=== PATIENT | female | born 1965 | race African-American/Black ===

== ENCOUNTER 2017-01-11 23:36 | Emergency (ER) | payer BC ==
[~2017-01-11] VITALS: Ht 165.1 cm; Wt 90.0 kg
[~2017-01-11 23:36] MED LIST: ATOR10TA69 PO; BISA-81 PO; CARV25TA47 PO; DOCU-138 PO; FURO-152 PO
[2017-01-11 23:40] VITALS: BP 163/91
== END 2017-01-12 00:56 | disposition left against medical advice (07) ==
LOC: ER 23:36
DX: R55 Syncope and collapse (principal); Z53.21 Procedure and treatment not carried out due to patient leaving prior to being seen by health care provider

== ENCOUNTER 2017-04-09 10:49 | Emergency (ER) | payer BC ==
[~2017-04-09] VITALS: Ht 167.6 cm; Wt 80.0 kg
[2017-04-09] MEDS ORDERED: SODIUM CHLORIDE 0.9% 1,000 ML IV ONE (11:02)
[2017-04-09] MEDS ORDERED: ONDANSETRON HCL 4MG/2ML VIAL IV ONE (11:15)
[2017-04-09] MEDS ORDERED: MECLIZINE 25MG TABLET PO ONE (11:15)
[2017-04-09] MEDS ORDERED: LORAZEPAM 1MG TABLET PO ONE (11:15)
[2017-04-09 11:37] LABS: BASOPHILS % 0.4 % (0.0-2.0); EOSINOPHILS % 2.1 % (0.0-5.0); HEMATOCRIT. 32.7 % (36.0-48.0); HEMOGLOBIN. 11.3 g/dL (12.0-16.0); LYMPHOCYTES % 13.3 % (20.0-50.0); MEAN CORPUSCULAR HEMOGLOBIN 32.1 pg (28.0-32.0); MEAN PLATELET VOLUME 9.9 fl (7.4-10.4); MONOCYTES % 7.1 % (2.0-8.0); NEUTROPHILS % 77.1 % (40.0-76.0); PLATELET 179 x1000/uL (130-400); RED BLOOD CELL COUNT 3.52 mill/uL (4.2-5.4); RED CELL DISTRIBUTION WIDTH 14.1 % (11.6-14.6)
[2017-04-09 11:45] LABS: INR 1.1; PROTHROMBIN TIME 11.5 sec (9.4-11.6)
[2017-04-09 11:57] LABS: CARBON DIOXIDE 24 mEq/L (21-32); CHLORIDE 109 mEq/L (98-107); TROPONIN I 0.04 ng/mL (0.00-0.04)
[2017-04-09 15:03] LABS: CLARITY URINE CLEAR (CLEAR); COLOR URINE YELLOW (YELLOW); GLUCOSE URINE NEGATIVE (NEGATIVE); KETONES URINE NEGATIVE (NEGATIVE); LEUKOCYTE ESTERASE URINE NEGATIVE (NEGATIVE); NITRITE URINE NEGATIVE (NEGATIVE); OCCULT BLOOD URINE NEGATIVE (NEGATIVE); PROTEIN URINE 3+ (NEGATIVE); SPECIFIC GRAVITY URINE 1.014 (1.005-1.030); UROBILINOGEN URINE 0.2 E.U./dL (0.2-1.0)
[2017-04-09 16:08] VITALS: BP 121/72
== END 2017-04-09 17:28 | disposition home or self-care (01) ==
LOC: ER 10:58
DX: R42 Dizziness and giddiness (principal); M79.641 Pain in right hand; I48.91 Unspecified atrial fibrillation; I11.0 Hypertensive heart disease with heart failure; I50.9 Heart failure, unspecified; J45.909 Unspecified asthma, uncomplicated; Z95.0 Presence of cardiac pacemaker; Z79.899 Other long term (current) drug therapy; Z88.0 Allergy status to penicillin
CPT/HCPCS: 36415; 70450; 71010; 73130; 80053; 81001; 83880; 84484; 85025; 85610; 93005; 96361; 96374; 99285; J2405; J7030; J7040; Z7610; J8597

== ENCOUNTER 2017-07-18 15:34 | Inpatient (IN) | payer BC, MEDICAID ==
[~2017-07-18] VITALS: Ht 165.1 cm; Wt 102.5 kg
[2017-07-18] MEDS ORDERED: MORPHINE SULFATE 2 MG/ML CPJ (NOT FOR IM USE) IV ONE ×2 (17:45→23:30)
[2017-07-18] MEDS ORDERED: MORPHINE SULFATE 4 MG/ML CPJ (NOT FOR IM USE) IV ONE (18:15)
[2017-07-18 18:29] LABS: BASOPHILS % 0.6 % (0.0-2.0); EOSINOPHILS % 1.6 % (0.0-5.0); HEMOGLOBIN. 9.8 g/dL (12.0-16.0); LYMPHOCYTES % 16.9 % (20.0-50.0); MEAN CORPUSCULAR HEMOGLOBIN 31.9 pg (28.0-32.0); MEAN CORPUSCULAR VOLUME 91.2 fL (81.0-99.0); MEAN PLATELET VOLUME 9.7 fl (7.4-10.4); MONOCYTES % 8.4 % (2.0-8.0); NEUTROPHILS % 72.5 % (40.0-76.0); PLATELET 177 x1000/uL (130-400); RED BLOOD CELL COUNT 3.07 mill/uL (4.2-5.4); RED CELL DISTRIBUTION WIDTH 15.1 % (11.6-14.6)
[2017-07-18 18:35] LABS: CHLORIDE 110 mEq/L (98-107)
[2017-07-18 18:36] LABS: INR 1.2; PROTHROMBIN TIME 12.1 sec (9.4-11.6)
[2017-07-18 18:46] LABS: TROPONIN I 0.05 ng/mL (0.00-0.04)
[2017-07-18] MEDS ORDERED: IPRATROPIUM/ALBUTEROL 0.5-3(2.5)MG/3ML NEB INH PRN (23:45)
[2017-07-18] MEDS ORDERED: CLONIDINE 0.1MG TABLET PO PRN (23:45)
[2017-07-18] MEDS ORDERED: ONDANSETRON HCL 4MG/2ML VIAL IV PRN (23:45)
[2017-07-18] MEDS ORDERED: MORPHINE SULFATE 4 MG/ML CPJ (NOT FOR IM USE) IV NR (23:45)
[2017-07-18] MEDS ORDERED: DOCUSATE SODIUM 100MG CAPSULE PO PRN (23:45)
[2017-07-19] MEDS ORDERED: APIX5TAB PO (02:52)
[2017-07-19] MEDS ORDERED: AMIO100T4 PO (02:52)
[2017-07-19] MEDS ORDERED: HYDR100T26 PO (02:52)
[2017-07-19] MEDS ORDERED: ISOS30TA6 PO (02:52)
[2017-07-19 02:53] VITALS: BP 177/96
[2017-07-19 05:51] LABS: BASOPHILS % 0.3 % (0.0-2.0); EOSINOPHILS % 1.6 % (0.0-5.0); HEMATOCRIT. 27.3 % (36.0-48.0); HEMOGLOBIN. 9.5 g/dL (12.0-16.0); LYMPHOCYTES % 20.4 % (20.0-50.0); MEAN CORPUSCULAR HEMOGLOBIN 31.9 pg (28.0-32.0); MEAN CORPUSCULAR VOLUME 91.6 fL (81.0-99.0); MEAN PLATELET VOLUME 10.1 fl (7.4-10.4); MONOCYTES % 10.2 % (2.0-8.0); NEUTROPHILS % 67.5 % (40.0-76.0); PLATELET 162 x1000/uL (130-400); RED BLOOD CELL COUNT 2.99 mill/uL (4.2-5.4); RED CELL DISTRIBUTION WIDTH 14.6 % (11.6-14.6)
[2017-07-19 06:32] LABS: CREATINE KINASE MB FRACTION 1.3 ng/mL (0.5-3.6); TROPONIN I 0.05 ng/mL (0.00-0.04)
[2017-07-19 06:54] LABS: CLARITY URINE CLEAR (CLEAR); COLOR URINE YELLOW (YELLOW); KETONES URINE NEGATIVE (NEGATIVE); LEUKOCYTE ESTERASE URINE NEGATIVE (NEGATIVE); NITRITE URINE NEGATIVE (NEGATIVE); OCCULT BLOOD URINE TRACE (NEGATIVE); PH URINE 5.5 (4.5-8.0); PROTEIN URINE 4+ (NEGATIVE); SPECIFIC GRAVITY URINE 1.017 (1.005-1.030); UROBILINOGEN URINE 0.2 E.U./dL (0.2-1.0)
[2017-07-19 08:22] LABS: *AMPHETAMINES SCREEN URINE NEGATIVE (NEGATIVE); *BARBITURATES SCREEN URINE NEGATIVE (NEGATIVE); *BENZODIAZEPINES SCREEN URINE NEGATIVE (NEGATIVE); *COCAINE SCREEN URINE NEGATIVE (NEGATIVE); CANNABINOID URINE SCREEN NEGATIVE (NEGATIVE); METHADONE URINE SCREEN NEGATIVE (NEGATIVE); OPIATES URINE SCREEN PRESUMTIVE POSITIVE (NEGATIVE); PHENCYCLIDINE URINE SCREEN NEGATIVE (NEGATIVE)
[2017-07-19 08:25] VITALS: BP 176/90
[2017-07-19] MEDS ORDERED: FUROSEMIDE 40MG/4ML VIAL IV SCH (09:00)
[2017-07-19] MEDS: ISOSORBIDE MONONITRATE 30MG TABLET SR 24HR PO SCH (10:38)
[2017-07-19] MEDS: BISACODYL 5MG TABLET PO SCH (11:00)
[2017-07-19] MEDS: AMIODARONE HCL 200 MG TABLET PO SCH (11:00)
[2017-07-19 12:16] VITALS: BP 184/94
[2017-07-19] MEDS: HYDROCODONE/ACETAMINOPHEN 5/325MG TABLET PO PRN ×2 (12:19→21:15)
[2017-07-19] MEDS ORDERED: CLONIDINE 0.1MG TABLET PO PRN (13:15)
[2017-07-19 16:14] VITALS: BP 150/85
[2017-07-19 16:18] LABS: CREATINE KINASE MB FRACTION 1.2 ng/mL (0.5-3.6); TROPONIN I 0.04 ng/mL (0.00-0.04)
[2017-07-19] MEDS: FUROSEMIDE 40MG/4ML VIAL IV SCH (17:20)
[2017-07-19] MEDS: APIXABAN 5 MG TABLET PO SCH (17:21)
[2017-07-19] MEDS: HYDRALAZINE HCL 100MG TABLET PO SCH (17:21)
[2017-07-19 20:00] VITALS: BP 159/61
[2017-07-19] MEDS: ATORVASTATIN CALCIUM 10MG TABLET PO SCH (21:05)
[2017-07-19] MEDS: CARVEDILOL 25MG TABLET PO SCH (21:05)
[2017-07-20] VITALS: BP 132/68
[2017-07-20 04:00] VITALS: BP 128/85
[2017-07-20] MEDS: HYDROCODONE/ACETAMINOPHEN 5/325MG TABLET PO PRN ×2 (04:57→14:17)
[2017-07-20 06:37] LABS: BASOPHILS % 0.4 % (0.0-2.0); EOSINOPHILS % 1.6 % (0.0-5.0); HEMATOCRIT. 30.5 % (36.0-48.0); HEMOGLOBIN. 10.6 g/dL (12.0-16.0); LYMPHOCYTES % 10.1 % (20.0-50.0); MEAN CORPUSCULAR HEMOGLOBIN 31.3 pg (28.0-32.0); MEAN CORPUSCULAR VOLUME 90.4 fL (81.0-99.0); MEAN PLATELET VOLUME 9.5 fl (7.4-10.4); MONOCYTES % 7.6 % (2.0-8.0); NEUTROPHILS % 80.3 % (40.0-76.0); PLATELET 187 x1000/uL (130-400); RED BLOOD CELL COUNT 3.37 mill/uL (4.2-5.4); RED CELL DISTRIBUTION WIDTH 14.7 % (11.6-14.6)
[2017-07-20] MEDS: FUROSEMIDE 40MG/4ML VIAL IV SCH ×2 (06:39→17:43)
[2017-07-20 07:03] LABS: PHOSPHORUS 3.4 mg/dL (2.5-4.9)
[2017-07-20 07:58] VITALS: BP 136/77
[2017-07-20] MEDS: BISACODYL 5MG TABLET PO SCH ×2 (09:00→09:13)
[2017-07-20] MEDS: ISOSORBIDE MONONITRATE 30MG TABLET SR 24HR PO SCH (09:12)
[2017-07-20] MEDS: HYDRALAZINE HCL 100MG TABLET PO SCH ×2 (09:13→17:45)
[2017-07-20] MEDS: AMIODARONE HCL 200 MG TABLET PO SCH (09:13)
[2017-07-20] MEDS: CARVEDILOL 25MG TABLET PO SCH ×2 (09:13→21:03)
[2017-07-20] MEDS: APIXABAN 5 MG TABLET PO SCH (09:13)
[2017-07-20] MEDS ORDERED: MAGNESIUM 2 G PREMIX 50 ML IV NR (09:30)
[2017-07-20 12:05] VITALS: BP 135/64
[2017-07-20 16:20] VITALS: BP 143/77
[2017-07-20] MEDS: ACETAMINOPHEN 325MG TABLET PO PRN (17:32)
[2017-07-20] MEDS: APIXABAN 2.5 MG TABLET PO SCH (17:43)
[2017-07-20 20:00] VITALS: BP 139/75
[2017-07-20] MEDS: ATORVASTATIN CALCIUM 10MG TABLET PO SCH (21:03)
[2017-07-21] VITALS: BP 134/78
[2017-07-21] MEDS: HYDROCODONE/ACETAMINOPHEN 5/325MG TABLET PO PRN ×2 (00:32→09:54)
[2017-07-21 04:00] VITALS: BP 140/88
[2017-07-21] MEDS: FUROSEMIDE 40MG/4ML VIAL IV SCH (06:40)
[2017-07-21 07:11] LABS: BASOPHILS % 0.3 % (0.0-2.0); EOSINOPHILS % 1.5 % (0.0-5.0); HEMATOCRIT. 30.4 % (36.0-48.0); HEMOGLOBIN. 10.4 g/dL (12.0-16.0); LYMPHOCYTES % 16.3 % (20.0-50.0); MEAN CORPUSCULAR HEMOGLOBIN 31.1 pg (28.0-32.0); MEAN CORPUSCULAR VOLUME 90.5 fL (81.0-99.0); MEAN PLATELET VOLUME 9.7 fl (7.4-10.4); MONOCYTES % 9.2 % (2.0-8.0); NEUTROPHILS % 72.7 % (40.0-76.0); PLATELET 197 x1000/uL (130-400); RED BLOOD CELL COUNT 3.35 mill/uL (4.2-5.4); RED CELL DISTRIBUTION WIDTH 14.6 % (11.6-14.6)
[2017-07-21 07:25] LABS: PHOSPHORUS 3.7 mg/dL (2.5-4.9)
[2017-07-21 08:00] VITALS: BP 149/83
[2017-07-21] MEDS: BISACODYL 5MG TABLET PO SCH (08:44)
[2017-07-21] MEDS: CARVEDILOL 25MG TABLET PO SCH ×2 (08:46→21:06)
[2017-07-21] MEDS: APIXABAN 2.5 MG TABLET PO SCH ×2 (08:47→16:36)
[2017-07-21] MEDS: ISOSORBIDE MONONITRATE 30MG TABLET SR 24HR PO SCH (08:47)
[2017-07-21] MEDS: HYDRALAZINE HCL 100MG TABLET PO SCH ×2 (08:47→16:36)
[2017-07-21] MEDS: AMIODARONE HCL 200 MG TABLET PO SCH (08:47)
[2017-07-21] MEDS ORDERED: SIMETHICONE 80MG TABLET CHEW PO PRN (11:00)
[2017-07-21 12:00] VITALS: BP 112/59
[2017-07-21 16:00] VITALS: BP 120/61
[2017-07-21] MEDS: HYDROCODONE/ACETAMINOPHEN 10/325MG TABLET PO PRN (18:58)
[2017-07-21 20:00] VITALS: BP 129/71
[2017-07-21] MEDS: ATORVASTATIN CALCIUM 10MG TABLET PO SCH (21:05)
[2017-07-22] VITALS: BP 141/72
[2017-07-22] MEDS: HYDROCODONE/ACETAMINOPHEN 10/325MG TABLET PO PRN ×3 (00:24→23:54)
[2017-07-22 04:00] VITALS: BP 128/72
[2017-07-22 08:00] VITALS: BP 145/85
[2017-07-22 08:01] LABS: BASOPHILS % 0.4 % (0.0-2.0); EOSINOPHILS % 1.4 % (0.0-5.0); HEMATOCRIT. 28.5 % (36.0-48.0); HEMOGLOBIN. 9.9 g/dL (12.0-16.0); LYMPHOCYTES % 16.2 % (20.0-50.0); MEAN CORPUSCULAR HEMOGLOBIN 30.9 pg (28.0-32.0); MEAN CORPUSCULAR VOLUME 89.3 fL (81.0-99.0); MEAN PLATELET VOLUME 9.9 fl (7.4-10.4); MONOCYTES % 8.4 % (2.0-8.0); NEUTROPHILS % 73.6 % (40.0-76.0); PLATELET 191 x1000/uL (130-400); RED BLOOD CELL COUNT 3.18 mill/uL (4.2-5.4); RED CELL DISTRIBUTION WIDTH 14.5 % (11.6-14.6)
[2017-07-22 08:49] LABS: PHOSPHORUS 3.8 mg/dL (2.5-4.9)
[2017-07-22] MEDS: AMIODARONE HCL 200 MG TABLET PO SCH (08:50)
[2017-07-22] MEDS: FUROSEMIDE 40MG TABLET PO SCH ×2 (08:50→20:54)
[2017-07-22] MEDS: APIXABAN 2.5 MG TABLET PO SCH ×2 (08:51→17:28)
[2017-07-22] MEDS: ISOSORBIDE MONONITRATE 30MG TABLET SR 24HR PO SCH (08:51)
[2017-07-22] MEDS: HYDRALAZINE HCL 100MG TABLET PO SCH ×2 (08:51→17:28)
[2017-07-22] MEDS: BISACODYL 5MG TABLET PO SCH (08:52)
[2017-07-22] MEDS: CARVEDILOL 25MG TABLET PO SCH ×2 (08:52→20:54)
[2017-07-22 12:00] VITALS: BP 102/58
[2017-07-22] MEDS ORDERED: POTASSIUM CHLORIDE 20MEQ TABLET SR PO NR (14:45)
[2017-07-22 16:00] VITALS: BP 122/66
[2017-07-22] MEDS: HYDROCODONE/ACETAMINOPHEN 5/325MG TABLET PO PRN (18:54)
[2017-07-22 20:00] VITALS: BP 128/67
[2017-07-22] MEDS: ATORVASTATIN CALCIUM 10MG TABLET PO SCH (20:53)
[2017-07-23] VITALS: BP 134/68
[2017-07-23 04:00] VITALS: BP 136/57
[2017-07-23 07:29] LABS: BASOPHILS % 0.5 % (0.0-2.0); EOSINOPHILS % 1.9 % (0.0-5.0); HEMATOCRIT. 28.6 % (36.0-48.0); HEMOGLOBIN. 9.8 g/dL (12.0-16.0); LYMPHOCYTES % 17.4 % (20.0-50.0); MEAN CORPUSCULAR HEMOGLOBIN 30.7 pg (28.0-32.0); MEAN CORPUSCULAR VOLUME 89.6 fL (81.0-99.0); MEAN PLATELET VOLUME 9.8 fl (7.4-10.4); MONOCYTES % 10.2 % (2.0-8.0); PLATELET 220 x1000/uL (130-400); RED BLOOD CELL COUNT 3.19 mill/uL (4.2-5.4); RED CELL DISTRIBUTION WIDTH 14.7 % (11.6-14.6)
[2017-07-23 08:00] VITALS: BP 142/81
[2017-07-23] MEDS: BISACODYL 5MG TABLET PO SCH (09:00)
[2017-07-23] MEDS: ISOSORBIDE MONONITRATE 30MG TABLET SR 24HR PO SCH (09:06)
[2017-07-23] MEDS: ACETAMINOPHEN 325MG TABLET PO PRN (09:07)
[2017-07-23] MEDS: CARVEDILOL 25MG TABLET PO SCH (09:07)
[2017-07-23] MEDS: FUROSEMIDE 40MG TABLET PO SCH (09:07)
[2017-07-23] MEDS: AMIODARONE HCL 200 MG TABLET PO SCH (09:07)
[2017-07-23] MEDS: HYDRALAZINE HCL 100MG TABLET PO SCH ×2 (09:08→18:37)
[2017-07-23] MEDS: APIXABAN 2.5 MG TABLET PO SCH ×2 (09:08→18:36)
[2017-07-23 11:50] VITALS: BP 148/67
[2017-07-23 13:11] LABS: A/G RATIO 1.1 (0.7-1.7); ALBUMIN 3.8 g/dL (2.9-4.4); ALPHA-1-GLOBULIN 0.3 g/dL (0.0-0.4); GAMMA GLOBULINS 1.4 g/dL (0.4-1.8); GLOBULIN TOTAL 3.6 g/dL (2.2-3.9); M-SPIKE Not Observed g/dL (Not Observed); TOTAL PROTEIN SERUM 7.4 g/dL (6.0-8.5)
[2017-07-23] MEDS: HYDROCODONE/ACETAMINOPHEN 10/325MG TABLET PO PRN (15:03)
[2017-07-23 16:00] VITALS: BP 148/58
[2017-07-23 18:14] VITALS: BP 124/72
[2017-07-24 09:07] LABS: COMPLEMENT C3 179 mg/dL (82-167)
[2017-07-25 04:13] LABS: ANTI-NUCLEAR ANTIBODIES DIRECT Positive (Negative)
== END 2017-07-23 19:18 | disposition home or self-care (01) | DRG 194 ==
LOC: ER 15:34 → 6WST 19:21 → ENRESERV 22:44 → 6WST 07-19 04:37
PROVIDERS: ADMIT Internal Medicine; ATTEND Internal Medicine
DX: I13.2 Hypertensive heart and chronic kidney disease with heart failure and with stage 5 chronic kidney disease, or end stage renal disease (principal); N17.9 Acute kidney failure, unspecified; I27.20 Pulmonary hypertension, unspecified; E66.01 Morbid (severe) obesity due to excess calories; N18.5 Chronic kidney disease, stage 5; I42.0 Dilated cardiomyopathy; B35.9 Dermatophytosis, unspecified; I48.0 Paroxysmal atrial fibrillation; I50.23 Acute on chronic systolic (congestive) heart failure; D64.9 Anemia, unspecified; E78.5 Hyperlipidemia, unspecified; I25.10 Atherosclerotic heart disease of native coronary artery without angina pectoris; J45.909 Unspecified asthma, uncomplicated; M72.2 Plantar fascial fibromatosis; M77.31 Calcaneal spur, right foot; Z68.37 Body mass index [BMI] 37.0-37.9, adult; Z79.01 Long term (current) use of anticoagulants; Z95.0 Presence of cardiac pacemaker; Z88.0 Allergy status to penicillin; Z79.899 Other long term (current) drug therapy
CPT/HCPCS: 36415; 71045; 73630; 76770; 80048; 80053; 80061; 80305; 81003; 81025; 82550; 82553; 83735; 83880; 84100; 84155; 84165; 84443; 84484; 84550; 85025; 85610; 86038; 86160; 93005; 93970; 96374; 96375; 97116; 97162; 99285; J1940; J2270; J3475; J7040

== ENCOUNTER 2018-01-23 23:10 | Inpatient (IN) | payer MEDICAID ==
[~2018-01-23] VITALS: Ht 165.1 cm; Wt 106.6 kg
[~2018-01-23 23:10] MED LIST changes: +AMIO100T4 PO; +APIX5TAB PO; +FOLI-43 MT; +HYDR100T26 PO; +ISOS30TA6 PO; +NEPVIT MT
[2018-01-24] MEDS ORDERED: ALBUTEROL (0.083%) 2.5MG/3ML NEB HHN STA (00:49)
[2018-01-24] MEDS ORDERED: IPRATROPIUM BROMIDE (0.02%) 0.5MG/2.5ML NEB HHN STA (00:49)
[2018-01-24] MEDS ORDERED: PREDNISONE 20MG TABLET PO STA (00:49)
[2018-01-24 01:26] LABS: BASOPHILS % 0.6 % (0.0-2.0); EOSINOPHILS % 3.5 % (0.0-5.0); HEMATOCRIT. 30.8 % (36.0-48.0); HEMOGLOBIN. 10.6 g/dL (12.0-16.0); LYMPHOCYTES % 28.1 % (20.0-50.0); MEAN CORPUSCULAR HEMOGLOBIN 31.3 pg (28.0-32.0); MEAN CORPUSCULAR VOLUME 91.1 fL (81.0-99.0); MEAN PLATELET VOLUME 9.6 fl (7.4-10.4); MONOCYTES % 8.2 % (2.0-8.0); NEUTROPHILS % 59.6 % (40.0-76.0); PLATELET 191 x1000/uL (130-400); RED BLOOD CELL COUNT 3.39 mill/uL (4.2-5.4)
[2018-01-24 01:33] LABS: CHLORIDE 109 mEq/L (98-107)
[2018-01-24] MEDS ORDERED: ENALAPRIL 2.5MG/2ML VIAL 2ML IV ONE (02:15)
[2018-01-24] MEDS ORDERED: FUROSEMIDE 40MG/4ML VIAL IVP ONE (02:15)
[2018-01-24] MEDS ORDERED: MORPHINE SULFATE 4 MG/ML CPJ (NOT FOR IM USE) IV PRN (04:30)
[2018-01-24] MEDS ORDERED: CLONIDINE 0.1MG TABLET PO PRN (04:30)
[2018-01-24] MEDS ORDERED: MAGNESIUM/ALUMINUM HYDROXIDE/SIMETHICONE 30ML UDC PO PRN (04:30)
[2018-01-24] MEDS ORDERED: DOCUSATE SODIUM 100MG CAPSULE PO PRN (04:30)
[2018-01-24] MEDS ORDERED: ONDANSETRON 4MG ODT PO PRN (04:30)
[2018-01-24] MEDS ORDERED: HYDROCODONE/ACETAMINOPHEN 5/325MG TABLET PO PRN (04:30)
[2018-01-24] MEDS ORDERED: ACETAMINOPHEN 325MG TABLET PO PRN (04:30)
[2018-01-24] MEDS ORDERED: IPRATROPIUM/ALBUTEROL 0.5-3(2.5)MG/3ML NEB INH PRN (04:30)
[2018-01-24 05:00] VITALS: BP 196/98
[2018-01-24] MEDS ORDERED: NEPVIT MT (05:40)
[2018-01-24] MEDS ORDERED: DOCU250C69 MT (05:40)
[2018-01-24] MEDS ORDERED: POTA-9 MT (05:40)
[2018-01-24 07:54] VITALS: BP 168/79
[2018-01-24] MEDS ORDERED: ENOXAPARIN 40MG/0.4ML SYR SUBCUT SCH (09:00)
[2018-01-24 09:37] LABS: CREATINE KINASE MB FRACTION 3.7 ng/mL (0.5-3.6)
[2018-01-24] MEDS: FUROSEMIDE 40MG/4ML VIAL IV SCH (09:42)
[2018-01-24] MEDS: ASPIRIN 81MG EC TABLET PO SCH (09:42)
[2018-01-24] MEDS: AMLODIPINE 10MG TABLET PO SCH (09:43)
[2018-01-24 12:00] VITALS: BP 161/85
[2018-01-24] MEDS ORDERED: GUAIFENESIN 200MG/10ML SUGAR FREE UDC PO PRN (12:30)
[2018-01-24] MEDS: CARVEDILOL 25MG TABLET PO SCH (13:45)
[2018-01-24] MEDS: HYDRALAZINE HCL 100MG TABLET PO SCH (13:45)
[2018-01-24] MEDS: GUAIFENESIN 200MG/10ML SUGAR FREE UDC PO PRN ×2 (13:46→20:36)
[2018-01-24 15:34] LABS: CLARITY URINE CLEAR (CLEAR); COLOR URINE YELLOW (YELLOW); KETONES URINE NEGATIVE (NEGATIVE); LEUKOCYTE ESTERASE URINE NEGATIVE (NEGATIVE); NITRITE URINE NEGATIVE (NEGATIVE); OCCULT BLOOD URINE TRACE (NEGATIVE); PROTEIN URINE 3+ (NEGATIVE); SPECIFIC GRAVITY URINE 1.008 (1.005-1.030); UROBILINOGEN URINE 0.2 E.U./dL (0.2-1.0)
[2018-01-24 16:04] VITALS: BP 140/65
[2018-01-24] MEDS: LEVOFLOXACIN 250MG PREMIX 50 ML IV SCH (16:23)
[2018-01-24 17:30] LABS: CREATINE KINASE MB FRACTION 2.9 ng/mL (0.5-3.6)
[2018-01-24 20:00] VITALS: BP 154/91
[2018-01-24] MEDS: ATORVASTATIN CALCIUM 20MG TABLET PO SCH (20:36)
[2018-01-25] VITALS: BP 146/79
[2018-01-25 02:01] VITALS: BP 165/98
[2018-01-25] MEDS: CARVEDILOL 25MG TABLET PO SCH ×3 (02:02→20:15)
[2018-01-25] MEDS: HYDRALAZINE HCL 100MG TABLET PO SCH ×3 (02:02→20:15)
[2018-01-25 06:15] LABS: BASOPHILS % 0.3 % (0.0-2.0); EOSINOPHILS % 0.5 % (0.0-5.0); HEMATOCRIT. 29.9 % (36.0-48.0); HEMOGLOBIN. 10.5 g/dL (12.0-16.0); LYMPHOCYTES % 16.8 % (20.0-50.0); MEAN CORPUSCULAR HEMOGLOBIN 31.6 pg (28.0-32.0); MEAN CORPUSCULAR VOLUME 90.1 fL (81.0-99.0); MEAN PLATELET VOLUME 9.7 fl (7.4-10.4); MONOCYTES % 8.4 % (2.0-8.0); PLATELET 176 x1000/uL (130-400); RED BLOOD CELL COUNT 3.32 mill/uL (4.2-5.4); RED CELL DISTRIBUTION WIDTH 15.7 % (11.6-14.6)
[2018-01-25 08:00] VITALS: BP 143/95
[2018-01-25 08:18] LABS: CHLORIDE 108 mEq/L (98-107)
[2018-01-25 08:32] LABS: HDL CHOLESTEROL 50 mg/dL (40-59); LDL CHOLESTEROL 119 mg/dL (5-100)
[2018-01-25] MEDS: AMLODIPINE 10MG TABLET PO SCH (09:35)
[2018-01-25] MEDS: FUROSEMIDE 40MG/4ML VIAL IV SCH (09:35)
[2018-01-25] MEDS: APIXABAN 5 MG TABLET PO SCH ×2 (09:35→18:21)
[2018-01-25] MEDS: ASPIRIN 81MG EC TABLET PO SCH (09:35)
[2018-01-25 12:00] VITALS: BP 129/83
[2018-01-25 16:00] VITALS: BP 126/81
[2018-01-25 20:00] VITALS: BP 142/89
[2018-01-25] MEDS: ATORVASTATIN CALCIUM 20MG TABLET PO SCH (20:15)
[2018-01-26] VITALS: BP 140/92
[2018-01-26 04:00] VITALS: BP 148/86
[2018-01-26 08:00] VITALS: BP 140/94
[2018-01-26 08:05] LABS: BASOPHILS % 0.6 % (0.0-2.0); HEMATOCRIT. 32.9 % (36.0-48.0); HEMOGLOBIN. 11.3 g/dL (12.0-16.0); LYMPHOCYTES % 28.4 % (20.0-50.0); MEAN CORPUSCULAR VOLUME 89.9 fL (81.0-99.0); MEAN PLATELET VOLUME 9.2 fl (7.4-10.4); MONOCYTES % 9.1 % (2.0-8.0); NEUTROPHILS % 55.9 % (40.0-76.0); PLATELET 197 x1000/uL (130-400); RED BLOOD CELL COUNT 3.66 mill/uL (4.2-5.4); RED CELL DISTRIBUTION WIDTH 15.9 % (11.6-14.6)
[2018-01-26] MEDS: FUROSEMIDE 40MG/4ML VIAL IV SCH (08:49)
[2018-01-26] MEDS: AMLODIPINE 10MG TABLET PO SCH (08:50)
[2018-01-26] MEDS: ASPIRIN 81MG EC TABLET PO SCH (08:50)
[2018-01-26] MEDS: APIXABAN 5 MG TABLET PO SCH ×2 (08:50→17:13)
[2018-01-26] MEDS: HYDRALAZINE HCL 100MG TABLET PO SCH (08:50)
[2018-01-26] MEDS: CARVEDILOL 25MG TABLET PO SCH (08:54)
[2018-01-26] MEDS ORDERED: LACTULOSE 20G/30ML UDC PO PRN (11:30)
[2018-01-26 12:00] VITALS: BP 129/82
[2018-01-26] MEDS: LEVOFLOXACIN 250MG PREMIX 50 ML IV SCH (14:43)
[2018-01-26 16:00] VITALS: BP 127/85
[2018-01-26 16:23] VITALS: BP 123/85
== END 2018-01-26 17:35 | disposition home or self-care (01) | DRG 199 ==
LOC: ER 23:10 → 5WST 01-24 02:46 → ENRESERV 01-24 03:54 → SUPCPDRO 01-24 04:20
PROVIDERS: ADMIT Hospitalist; ATTEND Hospitalist
DX: I16.0 Hypertensive urgency (principal); I50.33 Acute on chronic diastolic (congestive) heart failure; N17.9 Acute kidney failure, unspecified; N18.4 Chronic kidney disease, stage 4 (severe); J45.901 Unspecified asthma with (acute) exacerbation; I13.0 Hypertensive heart and chronic kidney disease with heart failure and stage 1 through stage 4 chronic kidney disease, or unspecified chronic kidney disease; D64.9 Anemia, unspecified; E78.5 Hyperlipidemia, unspecified; I25.10 Atherosclerotic heart disease of native coronary artery without angina pectoris; R79.89 Other specified abnormal findings of blood chemistry; Z95.810 Presence of automatic (implantable) cardiac defibrillator; Z79.899 Other long term (current) drug therapy; Z88.0 Allergy status to penicillin
CPT/HCPCS: 36415; 71045; 76770; 80048; 80053; 80061; 81003; 81025; 82550; 82553; 82570; 82575; 83880; 84156; 84484; 85025; 93005; 93306; 93970; 94640; 94644; 96374; 96375; 99285; J1650; J1940; J1956; J3490; J7040; J7512; J7611

== ENCOUNTER 2018-05-05 11:17 | Emergency (ER) | payer MEDICAID ==
[~2018-05-05] VITALS: Ht 165.1 cm; Wt 103.0 kg
[~2018-05-05 11:17] MED LIST changes: -AMIO100T4 PO; +AMLO5TAB88 PO; -BISA-81 PO; -CARV25TA47 PO; +COR6 PO; -DOCU-138 PO; +DOCU250C69 MT; -FOLI-43 MT; -FURO-152 PO; +HYDR-4134 PO; -HYDR100T26 PO; +TUSSL PO
[2018-05-05 12:55] LABS: BASOPHILS % 1.1 % (0.0-2.0); EOSINOPHILS % 5.3 % (0.0-5.0); HEMATOCRIT. 30.2 % (36.0-48.0); HEMOGLOBIN. 10.3 g/dL (12.0-16.0); LYMPHOCYTES % 21.5 % (20.0-50.0); MEAN CORPUSCULAR HEMOGLOBIN 31.5 pg (28.0-32.0); MEAN CORPUSCULAR VOLUME 91.9 fL (81.0-99.0); MEAN PLATELET VOLUME 9.9 fl (7.4-10.4); MONOCYTES % 7.3 % (2.0-8.0); NEUTROPHILS % 64.8 % (40.0-76.0); PLATELET 229 x1000/uL (130-400); RED BLOOD CELL COUNT 3.29 mill/uL (4.2-5.4); RED CELL DISTRIBUTION WIDTH 14.5 % (11.6-14.6)
[2018-05-05 13:02] LABS: CHLORIDE 101 mEq/L (98-107)
[2018-05-05 14:50] VITALS: BP 134/67
== END 2018-05-05 14:00 | disposition home or self-care (01) ==
LOC: ER 11:17
DX: I13.2 Hypertensive heart and chronic kidney disease with heart failure and with stage 5 chronic kidney disease, or end stage renal disease (principal); N18.6 End stage renal disease; R25.2 Cramp and spasm; I48.91 Unspecified atrial fibrillation; J45.909 Unspecified asthma, uncomplicated; I50.9 Heart failure, unspecified; Z79.899 Other long term (current) drug therapy; Z88.0 Allergy status to penicillin; Z99.2 Dependence on renal dialysis
CPT/HCPCS: 36415; 71045; 99284

== ENCOUNTER 2018-06-21 16:31 | Emergency (ER) | payer MEDICAID ==
[~2018-06-21] VITALS: Ht 162.6 cm; Wt 110.0 kg
[2018-06-21] MEDS ORDERED: ONDANSETRON HCL 4MG/2ML INJ IV STA (16:59)
[2018-06-21] MEDS ORDERED: MORPHINE SULFATE 4 MG/ML CPJ (NOT FOR IM USE) IV STA (16:59)
[2018-06-21] MEDS ORDERED: LORAZEPAM 2MG/ML CPJ IV ONE (17:00)
[2018-06-21 17:49] LABS: BASOPHILS % 0.6 % (0.0-2.0); EOSINOPHILS % 4.6 % (0.0-5.0); HEMATOCRIT. 30.3 % (36.0-48.0); HEMOGLOBIN. 10.4 g/dL (12.0-16.0); LYMPHOCYTES % 21.2 % (20.0-50.0); MEAN CORPUSCULAR HEMOGLOBIN 32.6 pg (28.0-32.0); MEAN CORPUSCULAR VOLUME 95.4 fL (81.0-99.0); MEAN PLATELET VOLUME 10.1 fl (7.4-10.4); MONOCYTES % 8.6 % (2.0-8.0); PLATELET 184 x1000/uL (130-400); RED BLOOD CELL COUNT 3.18 mill/uL (4.2-5.4); RED CELL DISTRIBUTION WIDTH 16.3 % (11.6-14.6)
[2018-06-21 17:54] LABS: CHLORIDE 98 mEq/L (98-107)
[2018-06-21 17:55] LABS: INR 1.1; PARTIAL THROMBOPLASTIN TIME 26.5 sec (23.4-31.0); PROTHROMBIN TIME 10.9 sec (9.1-11.1)
[2018-06-21] MEDS ORDERED: SODIUM CHLORIDE 0.9% 250 ML IV ONE (18:03)
[2018-06-21 20:09] VITALS: BP 98/53
== END 2018-06-21 20:12 | disposition home or self-care (01) ==
LOC: ER 16:31
DX: I13.2 Hypertensive heart and chronic kidney disease with heart failure and with stage 5 chronic kidney disease, or end stage renal disease (principal); M54.9 Dorsalgia, unspecified; R10.13 Epigastric pain; I48.91 Unspecified atrial fibrillation; J45.909 Unspecified asthma, uncomplicated; I50.9 Heart failure, unspecified; N18.6 End stage renal disease; Z99.2 Dependence on renal dialysis; Z98.890 Other specified postprocedural states; Z79.899 Other long term (current) drug therapy; Z88.0 Allergy status to penicillin
CPT/HCPCS: 36415; 71045; 74176; 80053; 83690; 83880; 84484; 85025; 85610; 85730; 93005; 96374; 96375; 99284; J2060; J2270; J2405; J7050; Z7610

== ENCOUNTER 2018-07-31 15:59 | Inpatient (IN) | payer MEDICAID ==
[~2018-07-31] VITALS: Ht 165.1 cm; Wt 102.5 kg
[~2018-07-31 15:59] MED LIST changes: +CARVEDILOL 12.5MG TABLET PO SCH
[2018-07-31 19:06] LABS: CHLORIDE 102 mEq/L (98-107)
[2018-07-31 19:07] LABS: BASOPHILS % 0.7 % (0.0-2.0); EOSINOPHILS % 3.4 % (0.0-5.0); HEMATOCRIT. 33.4 % (36.0-48.0); HEMOGLOBIN. 11.7 g/dL (12.0-16.0); LYMPHOCYTES % 21.5 % (20.0-50.0); MEAN CORPUSCULAR HEMOGLOBIN 33.7 pg (28.0-32.0); MEAN CORPUSCULAR VOLUME 96.2 fL (81.0-99.0); MEAN PLATELET VOLUME 9.7 fl (7.4-10.4); MONOCYTES % 7.2 % (2.0-8.0); NEUTROPHILS % 67.2 % (40.0-76.0); PLATELET 149 x1000/uL (130-400); RED BLOOD CELL COUNT 3.47 mill/uL (4.2-5.4)
[2018-07-31 19:11] LABS: INR 1.1; PROTHROMBIN TIME 10.8 sec (9.1-11.1)
[2018-07-31] MEDS ORDERED: ASPIRIN 81MG TABLET PO ONE (19:30)
[2018-07-31] MEDS ORDERED: FUROSEMIDE 20MG/2ML VIAL IVP ONE (19:30)
[2018-07-31] MEDS ORDERED: ONDANSETRON HCL 4MG/2ML INJ IV PRN (21:00)
[2018-07-31] MEDS ORDERED: ZOLPIDEM TARTRATE 5MG TABLET PO PRN (21:00)
[2018-07-31] MEDS ORDERED: ACETAMINOPHEN 325MG TABLET PO PRN (21:00)
[2018-07-31] MEDS ORDERED: CLONIDINE 0.1MG TABLET PO PRN (21:00)
[2018-08-01 05:45] LABS: EOSINOPHILS % 4.1 % (0.0-5.0); HEMATOCRIT. 32.2 % (36.0-48.0); HEMOGLOBIN. 11.1 g/dL (12.0-16.0); MEAN CORPUSCULAR HEMOGLOBIN 33.2 pg (28.0-32.0); MEAN CORPUSCULAR VOLUME 96.2 fL (81.0-99.0); MEAN PLATELET VOLUME 8.7 fl (7.4-10.4); MONOCYTES % 9.7 % (2.0-8.0); NEUTROPHILS % 55.2 % (40.0-76.0); PLATELET 146 x1000/uL (130-400); RED BLOOD CELL COUNT 3.34 mill/uL (4.2-5.4); RED CELL DISTRIBUTION WIDTH 15.6 % (11.6-14.6)
[2018-08-01 08:10] VITALS: BP 144/87
[2018-08-01] MEDS: LOSARTAN POTASSIUM 50 MG TABLET PO SCH (10:44)
[2018-08-01] MEDS: ASPIRIN 81MG TABLET PO SCH (10:44)
[2018-08-01] MEDS ORDERED: AMIO100T4 PO (11:11)
[2018-08-01 11:52] VITALS: BP 126/90
[2018-08-01 11:53] VITALS: BP 107/57
[2018-08-01] MEDS: AMIODARONE HCL 200 MG TABLET PO SCH (13:56)
[2018-08-01] MEDS: APIXABAN 5 MG TABLET PO SCH (13:56)
[2018-08-01] MEDS: DILTIAZEM HCL 60MG TABLET PO SCH ×2 (13:56→22:19)
[2018-08-01 16:00] VITALS: BP 100/49
[2018-08-01 20:00] VITALS: BP 112/76
[2018-08-01] MEDS: CARVEDILOL 12.5MG TABLET PO SCH (21:00)
[2018-08-02] VITALS: BP 115/81
[2018-08-02 01:43] LABS: *AMPHETAMINES SCREEN URINE NEGATIVE (NEGATIVE); *BARBITURATES SCREEN URINE NEGATIVE (NEGATIVE); *BENZODIAZEPINES SCREEN URINE NEGATIVE (NEGATIVE); *COCAINE SCREEN URINE NEGATIVE (NEGATIVE)
[2018-08-02 01:44] LABS: CANNABINOID URINE SCREEN NEGATIVE (NEGATIVE); METHADONE URINE SCREEN NEGATIVE (NEGATIVE); OPIATES URINE SCREEN NEGATIVE (NEGATIVE); PHENCYCLIDINE URINE SCREEN NEGATIVE (NEGATIVE)
[2018-08-02 04:00] VITALS: BP 149/65
[2018-08-02] MEDS: DILTIAZEM HCL 60MG TABLET PO SCH ×3 (05:34→22:25)
[2018-08-02 07:10] LABS: BASOPHILS % 0.7 % (0.0-2.0); EOSINOPHILS % 4.7 % (0.0-5.0); HEMATOCRIT. 32.8 % (36.0-48.0); HEMOGLOBIN. 11.2 g/dL (12.0-16.0); LYMPHOCYTES % 27.8 % (20.0-50.0); MEAN CORPUSCULAR HEMOGLOBIN 33.3 pg (28.0-32.0); MEAN CORPUSCULAR VOLUME 97.9 fL (81.0-99.0); MEAN PLATELET VOLUME 9.6 fl (7.4-10.4); MONOCYTES % 11.9 % (2.0-8.0); NEUTROPHILS % 54.9 % (40.0-76.0); PLATELET 142 x1000/uL (130-400); RED BLOOD CELL COUNT 3.35 mill/uL (4.2-5.4); RED CELL DISTRIBUTION WIDTH 15.7 % (11.6-14.6)
[2018-08-02 08:00] VITALS: BP 109/76
[2018-08-02] MEDS: CARVEDILOL 12.5MG TABLET PO SCH ×2 (09:00→21:20)
[2018-08-02] MEDS: ASPIRIN 81MG TABLET PO SCH (09:15)
[2018-08-02] MEDS: APIXABAN 5 MG TABLET PO SCH ×2 (09:15→17:03)
[2018-08-02 12:03] VITALS: BP 117/43
[2018-08-02] MEDS: AMIODARONE HCL 200 MG TABLET PO SCH (14:17)
[2018-08-02] MEDS: POLYETHYLENE GLYCOL 3350 (17GM) 1 DOSE PACK PO SCH (14:17)
[2018-08-02 16:00] VITALS: BP 124/72
[2018-08-02] MEDS: LOSARTAN POTASSIUM 50 MG TABLET PO SCH (16:34)
[2018-08-02 20:00] VITALS: BP 116/78
[2018-08-02] MEDS ORDERED: COR25 MT (20:40)
[2018-08-02] MEDS ORDERED: HYDR100T26 MT (20:42)
[2018-08-02] MEDS ORDERED: ISOS30TA6 MT (20:43)
[2018-08-02] MEDS ORDERED: AMLO10TA4 MT (20:46)
[2018-08-02] MEDS ORDERED: ASPI-1159 MT (20:46)
[2018-08-02] MEDS ORDERED: FURO-151 MT (20:46)
[2018-08-02] MEDS ORDERED: ASPI-1160 MT (20:47)
[2018-08-03] VITALS (7 sets, daily range): BP systolic 110–126; BP diastolic 59–73
[2018-08-03] MEDS: DILTIAZEM HCL 60MG TABLET PO SCH ×2 (05:36→14:00)
[2018-08-03 06:37] LABS: BASOPHILS % 0.9 % (0.0-2.0); EOSINOPHILS % 5.5 % (0.0-5.0); HEMATOCRIT. 35.5 % (36.0-48.0); HEMOGLOBIN. 12.3 g/dL (12.0-16.0); LYMPHOCYTES % 29.6 % (20.0-50.0); MEAN CORPUSCULAR HEMOGLOBIN 33.3 pg (28.0-32.0); MEAN CORPUSCULAR VOLUME 95.8 fL (81.0-99.0); MEAN PLATELET VOLUME 9.6 fl (7.4-10.4); MONOCYTES % 12.8 % (2.0-8.0); NEUTROPHILS % 51.2 % (40.0-76.0); PLATELET 151 x1000/uL (130-400); RED CELL DISTRIBUTION WIDTH 15.6 % (11.6-14.6)
[2018-08-03] MEDS: LOSARTAN POTASSIUM 50 MG TABLET PO SCH (08:44)
[2018-08-03] MEDS: AMIODARONE HCL 200 MG TABLET PO SCH (08:44)
[2018-08-03] MEDS: ASPIRIN 81MG TABLET PO SCH (08:44)
[2018-08-03] MEDS: CARVEDILOL 12.5MG TABLET PO SCH ×2 (08:45→20:37)
[2018-08-03] MEDS: APIXABAN 5 MG TABLET PO SCH ×2 (08:45→16:59)
[2018-08-03] MEDS: POLYETHYLENE GLYCOL 3350 (17GM) 1 DOSE PACK PO SCH (08:45)
[2018-08-03] MEDS ORDERED: POLY17PO3 PO (15:04)
[2018-08-03] MEDS ORDERED: LOSA50TA3 PO (15:04)
[2018-08-03] MEDS ORDERED: DILT60TA35 PO (15:04)
== END 2018-08-03 21:00 | disposition home or self-care (01) | DRG 201 ==
LOC: ER 15:59 → EDBEDREQTM 20:00 → EDBEDREQ 20:00 → ENRESERV 08-01 07:34 → 8WST 08-01 08:04
PROVIDERS: ADMIT Internal Medicine; ATTEND Internal Medicine
PROC: 4B02XTZ Measurement of Cardiac Defibrillator, External Approach (ICD-10-PCS; principal; 2018-08-01)
PROC: 5A1D70Z Performance of Urinary Filtration, Intermittent, Less than 6 Hours Per Day (ICD-10-PCS; 2018-08-02)
DX: I47.1 Supraventricular tachycardia (principal); I13.2 Hypertensive heart and chronic kidney disease with heart failure and with stage 5 chronic kidney disease, or end stage renal disease; I27.20 Pulmonary hypertension, unspecified; I42.0 Dilated cardiomyopathy; N18.6 End stage renal disease; D63.1 Anemia in chronic kidney disease; E66.9 Obesity, unspecified; I34.0 Nonrheumatic mitral (valve) insufficiency; I48.0 Paroxysmal atrial fibrillation; I50.23 Acute on chronic systolic (congestive) heart failure; J45.909 Unspecified asthma, uncomplicated; Z79.01 Long term (current) use of anticoagulants; Z82.49 Family history of ischemic heart disease and other diseases of the circulatory system; Z95.810 Presence of automatic (implantable) cardiac defibrillator; Z99.2 Dependence on renal dialysis; Z88.0 Allergy status to penicillin; Z79.899 Other long term (current) drug therapy; Z71.3 Dietary counseling and surveillance
CPT/HCPCS: 36415; 71045; 80048; 80305; 83735; 83880; 84443; 84484; 93005; 93306; 93970; 96374; 96375; 99285; J1940; J2405

== ENCOUNTER 2018-10-07 17:14 | Emergency (ER) | payer MEDICAID ==
[~2018-10-07] VITALS: Ht 165.1 cm; Wt 102.0 kg
[~2018-10-07 17:14] MED LIST changes: +AMIO100T4 PO; -AMLO5TAB88 PO; +ASPI-1160 MT; -CARVEDILOL 12.5MG TABLET PO SCH; +COR25 MT; -COR6 PO; +DILT60TA35 PO; -DOCU250C69 MT; +FURO-151 MT; -HYDR-4134 PO; -ISOS30TA6 PO; +LOSA50TA3 PO; -NEPVIT MT; +POLY17PO3 PO; -TUSSL PO
[2018-10-07] MEDS ORDERED: ONDANSETRON 4MG ODT PO STA (17:59)
[2018-10-07] MEDS ORDERED: MAGNESIUM/ALUMINUM HYDROXIDE/SIMETHICONE 30ML UDC PO STA (17:59)
[2018-10-07 19:13] LABS: HEMATOCRIT. 34.7 % (36.0-48.0); HEMOGLOBIN. 12.3 g/dL (12.0-16.0); MEAN CORPUSCULAR VOLUME 98.6 fL (81.0-99.0); MEAN PLATELET VOLUME 9.6 fl (7.4-10.4); MONOCYTES % 9.5 % (2.0-8.0); NEUTROPHILS % 59.5 % (40.0-76.0); PLATELET 132 x1000/uL (130-400); RED BLOOD CELL COUNT 3.53 mill/uL (4.2-5.4); RED CELL DISTRIBUTION WIDTH 16.8 % (11.6-14.6)
[2018-10-07 19:14] LABS: CHLORIDE 98 mEq/L (98-107)
[2018-10-07 19:15] LABS: PROTHROMBIN TIME 10.8 sec (9.6-11.0)
[2018-10-07] MEDS ORDERED: DIAZEPAM 5 MG TABLET PO ONE (19:45)
[2018-10-07 20:44] VITALS: BP 132/82
== END 2018-10-07 20:45 | disposition home or self-care (01) ==
LOC: ER 17:58
DX: I13.2 Hypertensive heart and chronic kidney disease with heart failure and with stage 5 chronic kidney disease, or end stage renal disease (principal); R25.2 Cramp and spasm; M62.831 Muscle spasm of calf; R14.3 Flatulence; R10.9 Unspecified abdominal pain; N18.6 End stage renal disease; I50.9 Heart failure, unspecified; I48.91 Unspecified atrial fibrillation; Z99.2 Dependence on renal dialysis; Z95.0 Presence of cardiac pacemaker; Z79.01 Long term (current) use of anticoagulants; Z88.0 Allergy status to penicillin
CPT/HCPCS: 36415; 71045; 80053; 83605; 84484; 85025; 85610; 93005; 99284; Q0162; Z7610

== ENCOUNTER 2018-11-11 17:52 | Emergency (ER) | payer MEDICAID ==
[~2018-11-11] VITALS: Ht 165.1 cm; Wt 102.0 kg
[2018-11-11 22:29] LABS: BASOPHILS % 0.5 % (0.0-2.0); EOSINOPHILS % 7.1 % (0.0-5.0); HEMATOCRIT. 28.7 % (36.0-48.0); HEMOGLOBIN. 10.1 g/dL (12.0-16.0); LYMPHOCYTES % 27.6 % (20.0-50.0); MEAN CORPUSCULAR HEMOGLOBIN 35.1 pg (28.0-32.0); MEAN CORPUSCULAR VOLUME 99.9 fL (81.0-99.0); MEAN PLATELET VOLUME 9.7 fl (7.4-10.4); MONOCYTES % 8.3 % (2.0-8.0); NEUTROPHILS % 56.5 % (40.0-76.0); PLATELET 136 x1000/uL (130-400); RED BLOOD CELL COUNT 2.87 mill/uL (4.2-5.4)
[2018-11-11 22:32] LABS: CHLORIDE 108 mEq/L (98-107)
[2018-11-11 22:35] LABS: PARTIAL THROMBOPLASTIN TIME 26.8 sec (23.4-31.0); PROTHROMBIN TIME 10.8 sec (9.6-11.0)
[2018-11-11 23:58] VITALS: BP 137/75
== END 2018-11-11 23:58 | disposition home or self-care (01) ==
LOC: ER 17:52 → CANBEDREQ 11-12 03:46
DX: T82.49XA Other complication of vascular dialysis catheter, initial encounter (principal); I13.2 Hypertensive heart and chronic kidney disease with heart failure and with stage 5 chronic kidney disease, or end stage renal disease; N18.6 End stage renal disease; I50.9 Heart failure, unspecified; J45.909 Unspecified asthma, uncomplicated; Z95.0 Presence of cardiac pacemaker; Z99.2 Dependence on renal dialysis; Z98.890 Other specified postprocedural states; Z88.0 Allergy status to penicillin; Z79.82 Long term (current) use of aspirin; Y84.1 Kidney dialysis as the cause of abnormal reaction of the patient, or of later complication, without mention of misadventure at the time of the procedure; Y92.018 Other place in single-family (private) house as the place of occurrence of the external cause
CPT/HCPCS: 36415; 71045; 83880; 84484; 93005; 99284

== ENCOUNTER 2018-11-12 06:55 | Emergency (ER) | payer MEDICAID ==
[~2018-11-12] VITALS: Ht 165.1 cm; Wt 104.0 kg
[2018-11-12] VITALS (15 sets, daily range): BP systolic 141–180; BP diastolic 92–108
[2018-11-12] MEDS ORDERED: LIDOCAINE HCL 1% 20ML VIAL (Pyxis) INJ ONE (08:05)
[2018-11-12] MEDS ORDERED: SODIUM BICARBONATE 4% (2.4MEQ) 5ML VIAL IV ONE (08:05)
[2018-11-12] MEDS ORDERED: CLINDAMYCIN 600MG PREMIX 50 ML IV SCH (08:30)
[2018-11-12 08:31] LABS: BASOPHILS % 0.5 % (0.0-2.0); EOSINOPHILS % 6.3 % (0.0-5.0); HEMATOCRIT. 29.1 % (36.0-48.0); HEMOGLOBIN. 10.2 g/dL (12.0-16.0); LYMPHOCYTES % 16.6 % (20.0-50.0); MEAN CORPUSCULAR HEMOGLOBIN 35.3 pg (28.0-32.0); MEAN CORPUSCULAR VOLUME 100.5 fL (81.0-99.0); MEAN PLATELET VOLUME 9.8 fl (7.4-10.4); MONOCYTES % 7.8 % (2.0-8.0); NEUTROPHILS % 68.8 % (40.0-76.0); PLATELET 130 x1000/uL (130-400); RED BLOOD CELL COUNT 2.89 mill/uL (4.2-5.4); RED CELL DISTRIBUTION WIDTH 14.7 % (11.6-14.6)
[2018-11-12 08:38] LABS: CHLORIDE 110 mEq/L (98-107)
[2018-11-12 08:39] LABS: INR 1.1; PARTIAL THROMBOPLASTIN TIME 30.4 sec (23.4-31.0); PROTHROMBIN TIME 11.3 sec (9.6-11.0)
[2018-11-12 08:45] LABS: PHOSPHORUS 4.3 mg/dL (2.5-4.9)
[2018-11-12] MEDS ORDERED: FENTANYL CITRATE/PF 50MCG/ML 2ML VIAL ONE (09:38)
[2018-11-12] MEDS ORDERED: FENTANYL CITRATE/PF 50MCG/ML 2ML VIAL IV ONE (10:00)
[2018-11-12] MEDS ORDERED: FENTANYL CITRATE/PF 50MCG/ML 2ML VIAL IV SCH (10:00)
== END 2018-11-12 11:32 | disposition home or self-care (01) ==
LOC: ER 06:55 → CANBEDREQ 17:11
DX: I13.0 Hypertensive heart and chronic kidney disease with heart failure and stage 1 through stage 4 chronic kidney disease, or unspecified chronic kidney disease (principal); I50.9 Heart failure, unspecified; N18.9 Chronic kidney disease, unspecified; N17.9 Acute kidney failure, unspecified; D64.9 Anemia, unspecified; J45.909 Unspecified asthma, uncomplicated; Z98.890 Other specified postprocedural states; Z95.0 Presence of cardiac pacemaker; Z88.0 Allergy status to penicillin; Z79.899 Other long term (current) drug therapy; Z79.82 Long term (current) use of aspirin; Z99.2 Dependence on renal dialysis
CPT/HCPCS: 36415; 36581; 71045; 77001; 80053; 83735; 84100; 85025; 85610; 85730; 93005; 96365; 96375; 99284; C1750; C1769; J1642; J3010; J3490; J7050; Z7610; 99152; 99153; G0500

== ENCOUNTER 2018-12-29 00:09 | Inpatient (IN) | payer MEDICAID ==
[~2018-12-29] VITALS: Ht 165.1 cm; Wt 108.0 kg
[2018-12-29] VITALS (9 sets, daily range): BP systolic 109–131; BP diastolic 73–85
[2018-12-29 00:48] LABS: BASOPHILS % 0.9 % (0.0-2.0); HEMATOCRIT. 31.1 % (36.0-48.0); LYMPHOCYTES % 29.5 % (20.0-50.0); MEAN CORPUSCULAR HEMOGLOBIN 35.4 pg (28.0-32.0); MEAN CORPUSCULAR VOLUME 100.3 fL (81.0-99.0); MEAN PLATELET VOLUME 9.3 fl (7.4-10.4); MONOCYTES % 8.2 % (2.0-8.0); NEUTROPHILS % 55.4 % (40.0-76.0); PLATELET 155 x1000/uL (130-400); RED CELL DISTRIBUTION WIDTH 13.9 % (11.6-14.6)
[2018-12-29 00:55] LABS: CHLORIDE 104 mEq/L (98-107)
[2018-12-29] MEDS ORDERED: ACETAMINOPHEN 325MG TABLET PO PRN (11:30)
[2018-12-29] MEDS ORDERED: ONDANSETRON HCL 4MG/2ML INJ IV PRN (11:30)
[2018-12-29] MEDS: CLINDAMYCIN HCL 150MG CAPSULE PO SCH ×2 (12:02→17:10)
[2018-12-29] MEDS ORDERED: CLONIDINE 0.1MG TABLET PO PRN (18:45)
[2018-12-29] MEDS ORDERED: DIPHENHYDRAMINE 25MG CAPSULE PO PRN (18:45)
[2018-12-29] MEDS ORDERED: ACETAMINOPHEN WITH CODEINE 300/30MG TABLET PO PRN (18:45)
[2018-12-30] MEDS: CLINDAMYCIN HCL 150MG CAPSULE PO SCH ×3 (00:34→11:10)
[2018-12-30 00:41] VITALS: BP 139/90
[2018-12-30 03:57] LABS: CLARITY URINE CLEAR (CLEAR); COLOR URINE YELLOW (YELLOW); KETONES URINE NEGATIVE (NEGATIVE); LEUKOCYTE ESTERASE URINE NEGATIVE (NEGATIVE); NITRITE URINE NEGATIVE (NEGATIVE); OCCULT BLOOD URINE TRACE (NEGATIVE); PH URINE 6.5 (4.5-8.0); PROTEIN URINE 3+ (NEGATIVE); SPECIFIC GRAVITY URINE 1.017 (1.005-1.030)
[2018-12-30 04:00] VITALS: BP 144/81
[2018-12-30 04:10] LABS: *AMPHETAMINES SCREEN URINE NEGATIVE (NEGATIVE); *BARBITURATES SCREEN URINE NEGATIVE (NEGATIVE); CANNABINOID URINE SCREEN NEGATIVE (NEGATIVE); PHENCYCLIDINE URINE SCREEN NEGATIVE (NEGATIVE)
[2018-12-30 04:11] LABS: *BENZODIAZEPINES SCREEN URINE NEGATIVE (NEGATIVE); *COCAINE SCREEN URINE NEGATIVE (NEGATIVE); METHADONE URINE SCREEN NEGATIVE (NEGATIVE); OPIATES URINE SCREEN PRESUMTIVE POSITIVE (NEGATIVE)
[2018-12-30 08:00] VITALS: BP 135/80
[2018-12-30 11:26] LABS: BASOPHILS % 0.8 % (0.0-2.0); EOSINOPHILS % 8.5 % (0.0-5.0); HEMOGLOBIN. 10.3 g/dL (12.0-16.0); LYMPHOCYTES % 22.7 % (20.0-50.0); MEAN CORPUSCULAR HEMOGLOBIN 35.4 pg (28.0-32.0); MEAN CORPUSCULAR VOLUME 99.8 fL (81.0-99.0); MEAN PLATELET VOLUME 9.9 fl (7.4-10.4); MONOCYTES % 7.6 % (2.0-8.0); NEUTROPHILS % 60.4 % (40.0-76.0); PLATELET 144 x1000/uL (130-400); RED CELL DISTRIBUTION WIDTH 13.6 % (11.6-14.6)
[2018-12-30 12:35] VITALS: BP 127/70
[2018-12-30] MEDS ORDERED: BENZONATATE 100MG CAPSULE PO PRN (12:45)
[2018-12-30] MEDS ORDERED: FAMOTIDINE 20MG TABLET PO SCH (12:45)
[2018-12-30] MEDS ORDERED: LORATADINE 10MG TABLET PO SCH (13:00)
[2018-12-30] MEDS ORDERED: LISINOPRIL 2.5MG TABLET PO SCH (13:00)
[2018-12-30] MEDS ORDERED: FLUTICASONE PROPIONATE 50MCG/SPRAY BOTTLE BOTHNSTRLS SCH (14:00)
[2018-12-30] MEDS ORDERED: MONT10TA21 PO (14:07)
[2018-12-30] MEDS ORDERED: CLAR10 PO (14:07)
[2018-12-30] MEDS ORDERED: COR3 PO (14:07)
[2018-12-30] MEDS ORDERED: LISI2.5T47 PO (14:07)
[2018-12-30] MEDS ORDERED: BISACODYL 5MG TABLET PO SCH (14:15)
[2018-12-30 16:45] VITALS: BP 139/85
[2018-12-30] MEDS ORDERED: MONTELUKAST SODIUM 10MG TABLET PO SCH (17:00)
[2018-12-30 20:19] VITALS: BP 126/80
[2018-12-30] MEDS ORDERED: CARVEDILOL 3.125 MG TABLET PO SCH (21:00)
== END 2018-12-30 21:13 | disposition home or self-care (01) | DRG 133 ==
LOC: ER 00:09 → 6WST 01:44 → EDBEDREQTM 02:02 → EDBEDREQ 02:02 → ENRESERV 07:35 → 6WST 12-30 13:01
PROVIDERS: ADMIT Internal Medicine; ATTEND Internal Medicine
PROC: 5A1D70Z Performance of Urinary Filtration, Intermittent, Less than 6 Hours Per Day (ICD-10-PCS; principal; 2018-12-30)
DX: J96.00 Acute respiratory failure, unspecified whether with hypoxia or hypercapnia (principal); I13.2 Hypertensive heart and chronic kidney disease with heart failure and with stage 5 chronic kidney disease, or end stage renal disease; I27.20 Pulmonary hypertension, unspecified; I42.0 Dilated cardiomyopathy; N18.6 End stage renal disease; G90.8 Other disorders of autonomic nervous system; I48.2 Chronic atrial fibrillation; D63.8 Anemia in other chronic diseases classified elsewhere; I50.23 Acute on chronic systolic (congestive) heart failure; Z99.2 Dependence on renal dialysis; E66.9 Obesity, unspecified; I34.0 Nonrheumatic mitral (valve) insufficiency; J45.909 Unspecified asthma, uncomplicated; J00 Acute nasopharyngitis [common cold]; Z79.01 Long term (current) use of anticoagulants; Z87.891 Personal history of nicotine dependence; Z95.810 Presence of automatic (implantable) cardiac defibrillator; Z98.891 History of uterine scar from previous surgery; Z88.0 Allergy status to penicillin; Z79.82 Long term (current) use of aspirin; Z71.3 Dietary counseling and surveillance; Z68.39 Body mass index [BMI] 39.0-39.9, adult
CPT/HCPCS: 36415; 71045; 80048; 80305; 81003; 83880; 84484; 85379; 93005; 93306; 99285

== ENCOUNTER 2019-02-12 23:58 | Emergency (ER) | payer BC ==
[~2019-02-12] VITALS: Ht 160 cm; Wt 100.0 kg
[~2019-02-12 23:58] MED LIST changes: -AMIO100T4 PO; -ASPI-1160 MT; -ATOR10TA69 PO; +CLAR10 PO; -COR25 MT; +COR3 PO; +LISI2.5T47 PO; -LOSA50TA3 PO; +MONT10TA21 PO
[2019-02-13 01:33] LABS: CHLORIDE 104 mEq/L (98-107)
[2019-02-13 01:35] LABS: BASOPHILS % 0.7 % (0.0-2.0); EOSINOPHILS % 3.6 % (0.0-5.0); HEMATOCRIT. 32.7 % (36.0-48.0); HEMOGLOBIN. 11.4 g/dL (12.0-16.0); LYMPHOCYTES % 19.6 % (20.0-50.0); MEAN CORPUSCULAR HEMOGLOBIN 34.6 pg (28.0-32.0); MEAN CORPUSCULAR VOLUME 99.3 fL (81.0-99.0); MEAN PLATELET VOLUME 9.8 fl (7.4-10.4); NEUTROPHILS % 65.1 % (40.0-76.0); PLATELET 189 x1000/uL (130-400); RED CELL DISTRIBUTION WIDTH 14.2 % (11.6-14.6)
[2019-02-13 02:50] VITALS: BP 132/79
== END 2019-02-13 02:50 | disposition home or self-care (01) ==
LOC: ER 23:58
DX: R55 Syncope and collapse (principal); R42 Dizziness and giddiness; I13.2 Hypertensive heart and chronic kidney disease with heart failure and with stage 5 chronic kidney disease, or end stage renal disease; N18.6 End stage renal disease; I50.9 Heart failure, unspecified; J45.909 Unspecified asthma, uncomplicated; I48.91 Unspecified atrial fibrillation; Z88.0 Allergy status to penicillin; Z95.0 Presence of cardiac pacemaker; Z99.2 Dependence on renal dialysis
CPT/HCPCS: 36415; 80053; 85025; 93005; 99284; Z7610

== ENCOUNTER 2019-05-15 17:30 | Inpatient (IN) | payer BC ==
[~2019-05-15] VITALS: Ht 165.1 cm; Wt 104.5 kg
[2019-05-15] MEDS ORDERED: METHYLPREDNISOLONE SOD SUCC 125 MG/2 ML VIAL IV STA (18:38)
[2019-05-15] MEDS ORDERED: LEVOFLOXACIN 750MG PREMIX 150 ML IV ONE (18:45)
[2019-05-15] MEDS ORDERED: IPRATROPIUM/ALBUTEROL 0.5-3(2.5)MG/3ML NEB HHN ONE (18:45)
[2019-05-15 19:50] LABS: CHLORIDE 106 mEq/L (98-107)
[2019-05-15 19:54] LABS: ETHANOL BLOOD < 10 mg/dL; PARTIAL THROMBOPLASTIN TIME 27.7 sec (23.4-31.0); PROTHROMBIN TIME 10.7 sec (9.6-11.0)
[2019-05-15 20:09] LABS: BASOPHILS % 0.3 % (0.0-2.0); EOSINOPHILS % 6.6 % (0.0-5.0); HEMATOCRIT. 28.5 % (36.0-48.0); HEMOGLOBIN. 10.2 g/dL (12.0-16.0); LYMPHOCYTES % 32.9 % (20.0-50.0); MEAN CORPUSCULAR HEMOGLOBIN 34.6 pg (28.0-32.0); MEAN CORPUSCULAR VOLUME 96.8 fL (81.0-99.0); MEAN PLATELET VOLUME 9.3 fl (7.4-10.4); MONOCYTES % 9.5 % (2.0-8.0); NEUTROPHILS % 50.7 % (40.0-76.0); PLATELET 162 x1000/uL (130-400); RED BLOOD CELL COUNT 2.95 mill/uL (4.2-5.4); RED CELL DISTRIBUTION WIDTH 14.6 % (11.6-14.6)
[2019-05-16 00:40] VITALS: BP 135/82
[2019-05-16] MEDS ORDERED: MORPHINE SULFATE 2 MG/ML CPJ (NOT FOR IM USE) IV PRN (01:30)
[2019-05-16] MEDS ORDERED: ACETAMINOPHEN 650MG/20.3ML UDC PO PRN (02:30)
[2019-05-16] MEDS: ACETAMINOPHEN 325MG TABLET PO PRN (02:49)
[2019-05-16 04:00] VITALS: BP 133/75
[2019-05-16 08:00] VITALS: BP 114/72
[2019-05-16] MEDS: APIXABAN 5 MG TABLET PO SCH ×2 (09:00→17:00)
[2019-05-16] MEDS: CARVEDILOL 12.5MG TABLET PO SCH ×2 (09:00→21:00)
[2019-05-16] MEDS: DILTIAZEM HCL 120MG CAPSULE CD 24HR PO SCH (09:00)
[2019-05-16] MEDS: IPRATROPIUM/ALBUTEROL 0.5-3(2.5)MG/3ML NEB HHN PRN (09:42)
[2019-05-16 12:00] VITALS: BP 135/81
[2019-05-16 15:21] LABS: HEMATOCRIT. 35.3 % (36.0-48.0); HEMOGLOBIN. 12.6 g/dL (12.0-16.0); MEAN CORPUSCULAR HEMOGLOBIN 34.2 pg (28.0-32.0); MEAN CORPUSCULAR VOLUME 95.8 fL (81.0-99.0); PLATELET 207 x1000/uL (130-400); RED BLOOD CELL COUNT 3.68 mill/uL (4.2-5.4); RED CELL DISTRIBUTION WIDTH 15.2 % (11.6-14.6)
[2019-05-16] MEDS: BENZONATATE 100MG CAPSULE PO SCH ×2 (15:22→21:51)
[2019-05-16] MEDS: LOSARTAN POTASSIUM 25 MG TABLET PO SCH (15:23)
[2019-05-16 16:00] VITALS: BP 115/70
[2019-05-16 17:19] LABS: PLATELET ESTIMATE NORMAL
[2019-05-16 20:00] VITALS: BP 98/46
[2019-05-16] MEDS: BUDESONIDE 0.5MG/2ML NEB HHN SCH (20:22)
[2019-05-17] VITALS: BP 112/66
[2019-05-17 04:00] VITALS: BP 105/64
[2019-05-17] MEDS: BENZONATATE 100MG CAPSULE PO SCH ×3 (05:07→22:14)
[2019-05-17 06:56] LABS: BASOPHILS % 0.1 % (0.0-2.0); LYMPHOCYTES % 9.8 % (20.0-50.0); MEAN CORPUSCULAR HEMOGLOBIN 33.6 pg (28.0-32.0); MEAN CORPUSCULAR VOLUME 97.5 fL (81.0-99.0); MEAN PLATELET VOLUME 9.8 fl (7.4-10.4); MONOCYTES % 7.6 % (2.0-8.0); NEUTROPHILS % 82.5 % (40.0-76.0); PLATELET 179 x1000/uL (130-400); RED BLOOD CELL COUNT 3.28 mill/uL (4.2-5.4); RED CELL DISTRIBUTION WIDTH 14.9 % (11.6-14.6)
[2019-05-17] MEDS: APIXABAN 5 MG TABLET PO SCH ×2 (07:46→17:45)
[2019-05-17] MEDS ORDERED: LIDOCAINE HCL 1% 20ML VIAL (Pyxis) INJ ONE (08:20)
[2019-05-17 08:34] VITALS: BP 110/64
[2019-05-17] MEDS: LOSARTAN POTASSIUM 25 MG TABLET PO SCH (09:00)
[2019-05-17] MEDS: CARVEDILOL 12.5MG TABLET PO SCH ×2 (09:00→20:38)
[2019-05-17] MEDS: DILTIAZEM HCL 120MG CAPSULE CD 24HR PO SCH ×2 (09:00→14:14)
[2019-05-17] MEDS: BUDESONIDE 0.5MG/2ML NEB HHN SCH ×2 (09:36→22:03)
[2019-05-17 12:00] VITALS: BP 157/61
[2019-05-17 16:00] VITALS: BP 135/79
[2019-05-17] MEDS ORDERED: LACTULOSE 20G/30ML UDC PO NR (16:45)
[2019-05-17] MEDS ORDERED: MAGNESIUM/ALUMINUM HYDROXIDE/SIMETHICONE 30ML UDC PO PRN (16:45)
[2019-05-17] MEDS: ACETAMINOPHEN 325MG TABLET PO PRN (17:40)
[2019-05-17] MEDS ORDERED: FAMOTIDINE 20MG TABLET PO SCH (21:00)
[2019-05-17] MEDS ORDERED: FAMOTIDINE 40MG TABLET PO SCH (21:43)
[2019-05-18 00:13] VITALS: BP 108/48
[2019-05-18 04:00] VITALS: BP 120/60
[2019-05-18] MEDS: BENZONATATE 100MG CAPSULE PO SCH (06:27)
[2019-05-18 08:01] VITALS: BP 135/45
[2019-05-18] MEDS: BUDESONIDE 0.5MG/2ML NEB HHN SCH (08:41)
[2019-05-18] MEDS: IPRATROPIUM/ALBUTEROL 0.5-3(2.5)MG/3ML NEB HHN PRN (08:41)
[2019-05-18] MEDS: DILTIAZEM HCL 120MG CAPSULE CD 24HR PO SCH (09:00)
[2019-05-18] MEDS: CARVEDILOL 12.5MG TABLET PO SCH (09:00)
[2019-05-18] MEDS: LOSARTAN POTASSIUM 25 MG TABLET PO SCH (09:00)
[2019-05-18] MEDS: APIXABAN 5 MG TABLET PO SCH (09:11)
[2019-05-31] MEDS ORDERED: ONDA4TAB5 PO (04:53)
[2019-06-02] MEDS ORDERED: DOCU250C14 MT (13:42)
[2019-06-02] MEDS ORDERED: SIME80TA15 MT (13:42)
== END 2019-05-18 14:21 | disposition home or self-care (01) | DRG 194 ==
LOC: ER 17:30 → EDBEDREQ 18:44 → 6WST 21:51 → EDBEDREQTM 21:54 → EDBEDREQ 21:54 → ENRESERV 23:35
PROVIDERS: ADMIT Internal Medicine; ATTEND Internal Medicine
PROC: 5A1D70Z Performance of Urinary Filtration, Intermittent, Less than 6 Hours Per Day (ICD-10-PCS; principal; 2019-05-15)
PROC: 5A1D70Z Performance of Urinary Filtration, Intermittent, Less than 6 Hours Per Day (ICD-10-PCS; 2019-05-16)
PROC: 02PAX3Z Removal of Infusion Device from Heart, External Approach (ICD-10-PCS; 2019-05-17)
DX: I13.2 Hypertensive heart and chronic kidney disease with heart failure and with stage 5 chronic kidney disease, or end stage renal disease (principal); E11.22 Type 2 diabetes mellitus with diabetic chronic kidney disease; I27.20 Pulmonary hypertension, unspecified; J45.901 Unspecified asthma with (acute) exacerbation; N18.6 End stage renal disease; I42.9 Cardiomyopathy, unspecified; I50.23 Acute on chronic systolic (congestive) heart failure; I25.10 Atherosclerotic heart disease of native coronary artery without angina pectoris; J06.9 Acute upper respiratory infection, unspecified; I48.91 Unspecified atrial fibrillation; E66.9 Obesity, unspecified; Z68.38 Body mass index [BMI] 38.0-38.9, adult; Z79.01 Long term (current) use of anticoagulants; Z95.810 Presence of automatic (implantable) cardiac defibrillator; Z98.891 History of uterine scar from previous surgery; Z99.2 Dependence on renal dialysis; Z88.0 Allergy status to penicillin; Z79.899 Other long term (current) drug therapy; Z71.89 Other specified counseling
CPT/HCPCS: 36415; 36589; 71045; 80048; 80051; 80053; 80320; 83605; 83880; 84484; 85025; 93005; 94640; 96365; 96366; 96375; 99285; J1956; J2930; J3490; J7626; G0480

== ENCOUNTER 2019-05-19 14:15 | Inpatient (IN) | payer BC, MEDICAID ==
[~2019-05-19] VITALS: Ht 167.6 cm; Wt 107.3 kg
[~2019-05-19 14:15] MED LIST changes: -CLAR10 PO; -FURO-151 MT; -LISI2.5T47 PO; -MONT10TA21 PO; -POLY17PO3 PO
[2019-05-19 17:43] LABS: BASOPHILS % 0.6 % (0.0-2.0); EOSINOPHILS % 1.9 % (0.0-5.0); LYMPHOCYTES % 21.3 % (20.0-50.0); MEAN CORPUSCULAR HEMOGLOBIN 34.1 pg (28.0-32.0); MEAN PLATELET VOLUME 10.9 fl (7.4-10.4); MONOCYTES % 7.4 % (2.0-8.0); NEUTROPHILS % 68.8 % (40.0-76.0); PLATELET 233 x1000/uL (130-400); RED BLOOD CELL COUNT 3.81 mill/uL (4.2-5.4); RED CELL DISTRIBUTION WIDTH 15.3 % (11.6-14.6)
[2019-05-19 17:49] LABS: CHLORIDE 100 mEq/L (98-107)
[2019-05-19 18:57] LABS: INR 1.1; PARTIAL THROMBOPLASTIN TIME 27.8 sec (23.4-31.0); PROTHROMBIN TIME 11.2 sec (9.6-11.0)
[2019-05-19] MEDS ORDERED: DOCUSATE SODIUM 100MG CAPSULE PO PRN (19:00)
[2019-05-19] MEDS ORDERED: LORAZEPAM 0.5MG TABLET PO PRN (19:00)
[2019-05-19] MEDS ORDERED: ONDANSETRON HCL 4MG/2ML INJ IV PRN (19:00)
[2019-05-19] MEDS ORDERED: ACETAMINOPHEN 325MG TABLET PO PRN (19:00)
[2019-05-19] MEDS ORDERED: HYDROCODONE/ACETAMINOPHEN 5/325MG TABLET PO PRN (19:00)
[2019-05-19] MEDS ORDERED: IPRATROPIUM/ALBUTEROL 0.5-3(2.5)MG/3ML NEB HHN PRN (19:00)
[2019-05-19] MEDS ORDERED: SIMETHICONE 80MG TABLET CHEW PO PRN (19:00)
[2019-05-19] MEDS ORDERED: CLONIDINE 0.1MG TABLET PO PRN (19:00)
[2019-05-19] MEDS: CARVEDILOL 3.125 MG TABLET PO SCH (22:32)
[2019-05-20] VITALS (13 sets, daily range): BP systolic 106–129; BP diastolic 56–82
[2019-05-20] MEDS: DILTIAZEM HCL 120MG CAPSULE CD 24HR PO SCH (08:40)
[2019-05-20] MEDS: CARVEDILOL 3.125 MG TABLET PO SCH ×2 (08:40→20:09)
[2019-05-20] MEDS: APIXABAN 5 MG TABLET PO SCH ×2 (08:40→16:07)
[2019-05-20 09:56] LABS: BASOPHILS % 0.9 % (0.0-2.0); EOSINOPHILS % 3.7 % (0.0-5.0); HEMATOCRIT. 30.1 % (36.0-48.0); HEMOGLOBIN. 10.7 g/dL (12.0-16.0); LYMPHOCYTES % 22.2 % (20.0-50.0); MEAN CORPUSCULAR HEMOGLOBIN 34.3 pg (28.0-32.0); MEAN CORPUSCULAR VOLUME 96.7 fL (81.0-99.0); MEAN PLATELET VOLUME 9.6 fl (7.4-10.4); MONOCYTES % 10.9 % (2.0-8.0); NEUTROPHILS % 62.3 % (40.0-76.0); PLATELET 174 x1000/uL (130-400); RED BLOOD CELL COUNT 3.11 mill/uL (4.2-5.4); RED CELL DISTRIBUTION WIDTH 14.8 % (11.6-14.6)
[2019-05-20] MEDS ORDERED: SODIUM CHLORIDE 0.45% 1,000 ML IV SCH (10:00)
[2019-05-21] VITALS (11 sets, daily range): BP systolic 96–129; BP diastolic 53–84
[2019-05-21 08:53] LABS: BASOPHILS % 0.7 % (0.0-2.0); EOSINOPHILS % 3.5 % (0.0-5.0); HEMATOCRIT. 29.1 % (36.0-48.0); HEMOGLOBIN. 10.4 g/dL (12.0-16.0); LYMPHOCYTES % 17.4 % (20.0-50.0); MEAN CORPUSCULAR HEMOGLOBIN 34.7 pg (28.0-32.0); MEAN CORPUSCULAR VOLUME 96.7 fL (81.0-99.0); MEAN PLATELET VOLUME 8.9 fl (7.4-10.4); MONOCYTES % 7.5 % (2.0-8.0); NEUTROPHILS % 70.9 % (40.0-76.0); PLATELET 158 x1000/uL (130-400); RED CELL DISTRIBUTION WIDTH 14.8 % (11.6-14.6)
[2019-05-21] MEDS: APIXABAN 5 MG TABLET PO SCH ×2 (09:00→17:15)
[2019-05-21] MEDS: CARVEDILOL 3.125 MG TABLET PO SCH (09:02)
[2019-05-21] MEDS: DILTIAZEM HCL 120MG CAPSULE CD 24HR PO SCH (09:02)
[2019-05-21 09:22] LABS: PHOSPHORUS 6.2 mg/dL (2.5-4.9)
[2019-05-21 15:15] LABS: *AMPHETAMINES SCREEN URINE NEGATIVE (NEGATIVE); *BARBITURATES SCREEN URINE NEGATIVE (NEGATIVE); *BENZODIAZEPINES SCREEN URINE NEGATIVE (NEGATIVE)
[2019-05-21 15:16] LABS: *COCAINE SCREEN URINE NEGATIVE (NEGATIVE); CANNABINOID URINE SCREEN NEGATIVE (NEGATIVE); METHADONE URINE SCREEN NEGATIVE (NEGATIVE); OPIATES URINE SCREEN NEGATIVE (NEGATIVE); PHENCYCLIDINE URINE SCREEN NEGATIVE (NEGATIVE)
[2019-05-21] MEDS ORDERED: CARVEDILOL 6.25 MG TABLET PO SCH (21:00)
[2019-05-22] MEDS ORDERED: DILTIAZEM HCL 120MG CAPSULE CD 24HR PO SCH (09:00)
[2019-05-31] MEDS ORDERED: ONDA4TAB5 PO (04:53)
[2019-06-02] MEDS ORDERED: DOCU250C14 MT (13:42)
[2019-06-02] MEDS ORDERED: SIME80TA15 MT (13:42)
== END 2019-05-21 19:20 | disposition home or self-care (01) | DRG 206 ==
LOC: ER 14:49 → 3WST 17:31 → EDBEDREQTM 17:34 → EDBEDREQ 17:34 → ENRESERV 05-20 03:20
PROVIDERS: ADMIT Internal Medicine; ATTEND Internal Medicine
DX: T82.199A Other mechanical complication of unspecified cardiac device, initial encounter (principal); I13.2 Hypertensive heart and chronic kidney disease with heart failure and with stage 5 chronic kidney disease, or end stage renal disease; E11.22 Type 2 diabetes mellitus with diabetic chronic kidney disease; I27.20 Pulmonary hypertension, unspecified; N18.6 End stage renal disease; J45.909 Unspecified asthma, uncomplicated; I48.91 Unspecified atrial fibrillation; E66.9 Obesity, unspecified; I50.22 Chronic systolic (congestive) heart failure; I47.1 Supraventricular tachycardia; Y82.8 Other medical devices associated with adverse incidents; Y92.89 Other specified places as the place of occurrence of the external cause; Z99.2 Dependence on renal dialysis; Z98.891 History of uterine scar from previous surgery; Z95.810 Presence of automatic (implantable) cardiac defibrillator; Z68.38 Body mass index [BMI] 38.0-38.9, adult
CPT/HCPCS: 36415; 71045; 80048; 80053; 80305; 83735; 83880; 84100; 84443; 84484; 85025; 93005; 99291

== ENCOUNTER 2019-05-23 13:25 | Inpatient (IN) | payer BC, MEDICAID ==
[~2019-05-23] VITALS: Ht 165.1 cm; Wt 103.0 kg
[2019-05-23 15:19] LABS: CHLORIDE 102 mEq/L (98-107)
[2019-05-23 15:23] LABS: BASOPHILS % 0.3 % (0.0-2.0); EOSINOPHILS % 3.6 % (0.0-5.0); HEMATOCRIT. 33.6 % (36.0-48.0); HEMOGLOBIN. 12.2 g/dL (12.0-16.0); LYMPHOCYTES % 19.6 % (20.0-50.0); MEAN CORPUSCULAR VOLUME 96.1 fL (81.0-99.0); MEAN PLATELET VOLUME 9.5 fl (7.4-10.4); MONOCYTES % 6.3 % (2.0-8.0); NEUTROPHILS % 70.2 % (40.0-76.0); PLATELET 191 x1000/uL (130-400); RED BLOOD CELL COUNT 3.49 mill/uL (4.2-5.4); RED CELL DISTRIBUTION WIDTH 14.9 % (11.6-14.6)
[2019-05-23] MEDS ORDERED: ASPIRIN 325MG TABLET PO ONE (16:30)
[2019-05-23] MEDS ORDERED: DILTIAZEM HCL 180MG CAPSULE CD 24HR PO ONE (17:15)
[2019-05-23] MEDS ORDERED: GUAIFENESIN 200MG/10ML SUGAR FREE UDC PO PRN (17:30)
[2019-05-23] MEDS ORDERED: ACETAMINOPHEN 325MG TABLET PO PRN (17:30)
[2019-05-23] MEDS ORDERED: CLONIDINE 0.1MG TABLET PO PRN (17:30)
[2019-05-23] MEDS ORDERED: DIPHENHYDRAMINE 50MG/ML VIAL IV PRN (17:30)
[2019-05-23] MEDS ORDERED: ONDANSETRON HCL 4MG/2ML INJ IV PRN (17:30)
[2019-05-23] MEDS ORDERED: IPRATROPIUM/ALBUTEROL 0.5-3(2.5)MG/3ML NEB HHN PRN (17:30)
[2019-05-24] VITALS (7 sets, daily range): BP systolic 110–153; BP diastolic 50–80
[2019-05-24] MEDS ORDERED: COR25 PO (01:57)
[2019-05-24] MEDS: ENOXAPARIN 120MG/0.8ML SYR SUBCUT SCH ×2 (05:25→05:31)
[2019-05-24] MEDS: FAMOTIDINE 20MG TABLET PO SCH (08:43)
[2019-05-24] MEDS: CARVEDILOL 6.25 MG TABLET PO SCH ×2 (08:44→21:00)
[2019-05-24] MEDS ORDERED: CARVEDILOL 3.125 MG TABLET PO SCH (09:00)
[2019-05-24 09:48] LABS: BASOPHILS % 0.6 % (0.0-2.0); EOSINOPHILS % 5.1 % (0.0-5.0); HEMATOCRIT. 29.2 % (36.0-48.0); HEMOGLOBIN. 10.5 g/dL (12.0-16.0); LYMPHOCYTES % 23.8 % (20.0-50.0); MEAN CORPUSCULAR HEMOGLOBIN 34.6 pg (28.0-32.0); MEAN CORPUSCULAR VOLUME 96.6 fL (81.0-99.0); MONOCYTES % 8.6 % (2.0-8.0); NEUTROPHILS % 61.9 % (40.0-76.0); PLATELET 187 x1000/uL (130-400); RED BLOOD CELL COUNT 3.02 mill/uL (4.2-5.4); RED CELL DISTRIBUTION WIDTH 14.8 % (11.6-14.6)
[2019-05-24 09:56] LABS: INR 1.2; PROTHROMBIN TIME 12.1 sec (9.6-11.0)
[2019-05-24] MEDS: DILTIAZEM HCL 90MG TABLET PO SCH ×3 (12:06→23:51)
[2019-05-24] MEDS ORDERED: DILTIAZEM HCL 60MG TABLET PO SCH (14:00)
[2019-05-25] VITALS: BP 127/81
[2019-05-25 04:00] VITALS: BP 113/78
[2019-05-25] MEDS: DILTIAZEM HCL 90MG TABLET PO SCH ×4 (05:47→21:01)
[2019-05-25 08:00] VITALS: BP 138/73
[2019-05-25] MEDS: ENOXAPARIN 120MG/0.8ML SYR SUBCUT SCH (09:00)
[2019-05-25] MEDS: CARVEDILOL 6.25 MG TABLET PO SCH ×2 (09:00→21:01)
[2019-05-25] MEDS: FAMOTIDINE 20MG TABLET PO SCH (09:06)
[2019-05-25 10:08] LABS: BASOPHILS % 0.8 % (0.0-2.0); HEMATOCRIT. 25.6 % (36.0-48.0); HEMOGLOBIN. 9.3 g/dL (12.0-16.0); LYMPHOCYTES % 20.2 % (20.0-50.0); MEAN CORPUSCULAR HEMOGLOBIN 34.9 pg (28.0-32.0); MEAN CORPUSCULAR VOLUME 96.1 fL (81.0-99.0); MEAN PLATELET VOLUME 9.8 fl (7.4-10.4); MONOCYTES % 8.3 % (2.0-8.0); NEUTROPHILS % 65.7 % (40.0-76.0); PLATELET 155 x1000/uL (130-400); RED BLOOD CELL COUNT 2.66 mill/uL (4.2-5.4); RED CELL DISTRIBUTION WIDTH 14.8 % (11.6-14.6)
[2019-05-25 12:00] VITALS: BP 140/81
[2019-05-25 15:47] VITALS: BP 119/73
[2019-05-25 20:00] VITALS: BP 120/75
[2019-05-26] VITALS: BP 134/76
[2019-05-26 04:00] VITALS: BP 142/92
[2019-05-26] MEDS: DILTIAZEM HCL 90MG TABLET PO SCH ×3 (05:23→17:46)
[2019-05-26 08:00] VITALS: BP 135/81
[2019-05-26] MEDS: FAMOTIDINE 20MG TABLET PO SCH (09:12)
[2019-05-26] MEDS: CARVEDILOL 6.25 MG TABLET PO SCH (09:13)
[2019-05-26] MEDS: ENOXAPARIN 120MG/0.8ML SYR SUBCUT SCH (09:14)
[2019-05-26 10:33] LABS: BASOPHILS % 0.5 % (0.0-2.0); EOSINOPHILS % 3.8 % (0.0-5.0); HEMATOCRIT. 28.2 % (36.0-48.0); HEMOGLOBIN. 10.1 g/dL (12.0-16.0); LYMPHOCYTES % 21.8 % (20.0-50.0); MEAN CORPUSCULAR HEMOGLOBIN 34.8 pg (28.0-32.0); MEAN CORPUSCULAR VOLUME 97.1 fL (81.0-99.0); MEAN PLATELET VOLUME 9.9 fl (7.4-10.4); MONOCYTES % 7.9 % (2.0-8.0); PLATELET 173 x1000/uL (130-400); RED CELL DISTRIBUTION WIDTH 15.1 % (11.6-14.6)
[2019-05-26 12:00] VITALS: BP 127/90
[2019-05-26] MEDS ORDERED: COR6 PO (12:12)
[2019-05-26] MEDS ORDERED: DILT360T13 MT (12:12)
[2019-05-26] MEDS ORDERED: SIME80TA15 MT (12:14)
[2019-05-26] MEDS ORDERED: SIMETHICONE 80MG TABLET CHEW PO PRN (12:15)
[2019-05-26] MEDS: DOCUSATE SODIUM 100MG CAPSULE PO SCH ×2 (12:43→17:00)
[2019-05-26] MEDS ORDERED: MAGNESIUM HYDROXIDE 400MG/5ML 30ML UDC PO PRN (15:00)
[2019-05-26 16:00] VITALS: BP 122/44
[2019-05-26] MEDS ORDERED: DOCUSATE SODIUM 100MG CAPSULE PO SCH (17:00)
[2019-05-26 18:20] VITALS: BP 122/44
[2019-05-31] MEDS ORDERED: ONDA4TAB5 PO (04:53)
[2019-06-02] MEDS ORDERED: SIME80TA15 MT (13:42)
[2019-06-02] MEDS ORDERED: DOCU250C14 MT (13:42)
== END 2019-05-26 19:30 | disposition home or self-care (01) | DRG 201 ==
LOC: ER 13:25 → 7WST 17:02 → EDBEDREQSVC 21:29 → ENRESERV 23:11
PROVIDERS: ADMIT Internal Medicine; ATTEND Internal Medicine
PROC: 5A1D70Z Performance of Urinary Filtration, Intermittent, Less than 6 Hours Per Day (ICD-10-PCS; principal; 2019-05-25)
DX: I48.0 Paroxysmal atrial fibrillation (principal); I13.2 Hypertensive heart and chronic kidney disease with heart failure and with stage 5 chronic kidney disease, or end stage renal disease; E11.22 Type 2 diabetes mellitus with diabetic chronic kidney disease; I27.20 Pulmonary hypertension, unspecified; I42.0 Dilated cardiomyopathy; N18.6 End stage renal disease; I50.22 Chronic systolic (congestive) heart failure; E66.09 Other obesity due to excess calories; D64.9 Anemia, unspecified; I48.92 Unspecified atrial flutter; I34.0 Nonrheumatic mitral (valve) insufficiency; J45.909 Unspecified asthma, uncomplicated; Z79.01 Long term (current) use of anticoagulants; Z98.891 History of uterine scar from previous surgery; Z99.2 Dependence on renal dialysis; Z95.810 Presence of automatic (implantable) cardiac defibrillator; Z82.3 Family history of stroke; Z82.49 Family history of ischemic heart disease and other diseases of the circulatory system; Z79.899 Other long term (current) drug therapy; Z88.0 Allergy status to penicillin; Z68.37 Body mass index [BMI] 37.0-37.9, adult
CPT/HCPCS: 36415; 71045; 80048; 80053; 80061; 82962; 83735; 84443; 84484; 85025; 93005; 93306; 93970; 99291; J1200; J1650; J2405

== ENCOUNTER 2019-05-27 17:22 | Emergency (ER) | payer MEDICAID ==
[~2019-05-27] VITALS: Ht 162.6 cm; Wt 95.0 kg
[~2019-05-27 17:22] MED LIST changes: -COR3 PO; +COR6 PO; +DILT360T13 MT; -DILT60TA35 PO; +SIME80TA15 MT
[2019-05-27 21:45] VITALS: BP 141/85
== END 2019-05-27 22:00 | disposition home or self-care (01) ==
LOC: ER 18:07
DX: F41.9 Anxiety disorder, unspecified (principal); R00.2 Palpitations; I10 Essential (primary) hypertension; E11.9 Type 2 diabetes mellitus without complications; J45.909 Unspecified asthma, uncomplicated; I48.91 Unspecified atrial fibrillation; Z98.890 Other specified postprocedural states; Z88.0 Allergy status to penicillin; Z79.899 Other long term (current) drug therapy
CPT/HCPCS: 71045; 93005; 99283

== ENCOUNTER 2019-11-23 23:07 | Inpatient (IN) | payer MEDICAID ==
[~2019-11-23] VITALS: Ht 165.1 cm; Wt 101.6 kg
[~2019-11-23 23:07] MED LIST changes: +ALBU18HF2 IH; +CINA30 MT; +DOCU250C14 MT; +MED4 MT; +TUSSL MT
[2019-11-24 00:38] LABS: BASOPHILS % 0.8 % (0.0-2.0); EOSINOPHILS % 7.4 % (0.0-5.0); HEMATOCRIT. 28.6 % (36.0-48.0); LYMPHOCYTES % 24.7 % (20.0-50.0); MEAN CORPUSCULAR HEMOGLOBIN 33.3 pg (28.0-32.0); MEAN CORPUSCULAR VOLUME 95.2 fL (81.0-99.0); MEAN PLATELET VOLUME 9.7 fl (7.4-10.4); NEUTROPHILS % 61.1 % (40.0-76.0); PLATELET 171 x1000/uL (130-400); RED CELL DISTRIBUTION WIDTH 17.2 % (11.6-14.6)
[2019-11-24 00:46] LABS: CHLORIDE 108 mEq/L (98-107)
[2019-11-24] MEDS ORDERED: AZITHROMYCIN 500 MG in DEXT 5% WATER 250 ML IV NR (02:30)
[2019-11-24] MEDS ORDERED: CEFTRIAXONE 1 G PREMIX 50 ML IV NR (05:00)
[2019-11-24 13:20] VITALS: BP 140/80
[2019-11-24 16:03] VITALS: BP 131/86
[2019-11-24] MEDS ORDERED: ONDANSETRON HCL 4MG/2ML INJ IV PRN (17:15)
[2019-11-24] MEDS ORDERED: ACETAMINOPHEN 325MG TABLET PO PRN (17:15)
[2019-11-24] MEDS ORDERED: APIXABAN 5 MG TABLET PO SCH (17:15)
[2019-11-24] MEDS ORDERED: DOCUSATE SODIUM 100MG CAPSULE PO PRN (17:15)
[2019-11-24] MEDS ORDERED: CLONIDINE 0.1MG TABLET PO PRN (17:15)
[2019-11-24] MEDS ORDERED: IPRATROPIUM/ALBUTEROL 0.5-3(2.5)MG/3ML NEB NEB PRN (17:15)
[2019-11-24] MEDS ORDERED: MAGNESIUM/ALUMINUM HYDROXIDE/SIMETHICONE 30ML UDC PO PRN (17:15)
[2019-11-24] MEDS: APIXABAN 5 MG TABLET PO SCH (17:58)
[2019-11-24 19:20] LABS: CLARITY URINE CLEAR (CLEAR); COLOR URINE YELLOW (YELLOW); KETONES URINE NEGATIVE (NEGATIVE); LEUKOCYTE ESTERASE URINE NEGATIVE (NEGATIVE); NITRITE URINE NEGATIVE (NEGATIVE); OCCULT BLOOD URINE TRACE (NEGATIVE); PROTEIN URINE 3+ (NEGATIVE); UROBILINOGEN URINE 0.2 E.U./dL (0.2-1.0)
[2019-11-24 20:00] VITALS: BP 152/94
[2019-11-24] MEDS: CARVEDILOL 6.25 MG TABLET PO SCH (21:03)
[2019-11-24] MEDS: DILTIAZEM HCL 60MG TABLET PO SCH (21:03)
[2019-11-25] VITALS (7 sets, daily range): BP systolic 124–150; BP diastolic 74–100
[2019-11-25] MEDS: DILTIAZEM HCL 60MG TABLET PO SCH ×2 (05:10→13:42)
[2019-11-25 06:15] LABS: PHOSPHORUS 3.9 mg/dL (2.5-4.9)
[2019-11-25 06:20] LABS: BASOPHILS % 0.8 % (0.0-2.0); EOSINOPHILS % 8.5 % (0.0-5.0); HEMATOCRIT. 29.4 % (36.0-48.0); HEMOGLOBIN. 10.2 g/dL (12.0-16.0); LYMPHOCYTES % 26.4 % (20.0-50.0); MEAN CORPUSCULAR HEMOGLOBIN 32.7 pg (28.0-32.0); MEAN CORPUSCULAR VOLUME 94.6 fL (81.0-99.0); MEAN PLATELET VOLUME 10.2 fl (7.4-10.4); MONOCYTES % 7.4 % (2.0-8.0); NEUTROPHILS % 56.9 % (40.0-76.0); PLATELET 177 x1000/uL (130-400); RED BLOOD CELL COUNT 3.11 mill/uL (4.2-5.4); RED CELL DISTRIBUTION WIDTH 17.5 % (11.6-14.6)
[2019-11-25] MEDS ORDERED: CINACALCET HCL 30MG TABLET PO SCH (09:00)
[2019-11-25] MEDS ORDERED: PANTOPRAZOLE SODIUM 40 MG/VIAL IV SCH (09:00)
[2019-11-25] MEDS: APIXABAN 5 MG TABLET PO SCH ×2 (09:28→19:59)
[2019-11-25] MEDS: CARVEDILOL 6.25 MG TABLET PO SCH (09:28)
[2019-11-25] MEDS ORDERED: MONTELUKAST SODIUM 10MG TABLET PO SCH (17:00)
[2019-11-25] MEDS ORDERED: IPRATROPIUM/ALBUTEROL 0.5-3(2.5)MG/3ML NEB HHN SCH (18:00)
[2019-11-25] MEDS ORDERED: BUDESONIDE 0.5MG/2ML NEB HHN SCH (18:00)
[2019-11-25] MEDS ORDERED: HYDRALAZINE HCL 10MG TABLET PO SCH (21:00)
== END 2019-11-25 20:15 | DRG 194 ==
LOC: ER 23:07 → 7WST 11-24 02:21 → EDBEDREQSVC 11-24 02:30 → EDBEDREQ 11-24 02:30 → EDBEDREQTM 11-24 02:30 → ENRESERV 11-24 11:51 → CANRESERV 11-24 11:51 → ENRESERV 11-24 11:53 → 6WST 11-25 05:39
PROVIDERS: ADMIT Internal Medicine; ATTEND Internal Medicine
PROC: 5A1D70Z Performance of Urinary Filtration, Intermittent, Less than 6 Hours Per Day (ICD-10-PCS; principal; 2019-11-25)
DX: I13.2 Hypertensive heart and chronic kidney disease with heart failure and with stage 5 chronic kidney disease, or end stage renal disease (principal); E87.70 Fluid overload, unspecified; J96.00 Acute respiratory failure, unspecified whether with hypoxia or hypercapnia; J45.909 Unspecified asthma, uncomplicated; R74.0 Nonspecific elevation of levels of transaminase and lactic acid dehydrogenase [LDH]; Z20.828 Contact with and (suspected) exposure to other viral communicable diseases; N18.6 End stage renal disease; E78.5 Hyperlipidemia, unspecified; I42.9 Cardiomyopathy, unspecified; I48.0 Paroxysmal atrial fibrillation; D64.9 Anemia, unspecified; I50.43 Acute on chronic combined systolic (congestive) and diastolic (congestive) heart failure; E11.22 Type 2 diabetes mellitus with diabetic chronic kidney disease; Z88.0 Allergy status to penicillin; Z79.01 Long term (current) use of anticoagulants; Z98.891 History of uterine scar from previous surgery; Z99.2 Dependence on renal dialysis; Z95.810 Presence of automatic (implantable) cardiac defibrillator
CPT/HCPCS: 36415; 71045; 80048; 80053; 80061; 81003; 83605; 83735; 84100; 84145; 84443; 84484; 85025; 93005; 93970; 97162; 97166; 99291; C9113; J0456; J0696; J7060; J7626; U0003-CS

== ENCOUNTER 2024-07-24 09:57 | Emergency (ER) | payer MEDICARE, MEDICAID ==
[~2024-07-24] VITALS: Ht 162.6 cm; Wt 75.0 kg
[~2024-07-24 09:57] MED LIST changes: +ALBU6.7H15 INH; +ATOR10TA69 PO; +ATROV INH; +CARV6.2548 PO; +CHOL-36 PO; +CINA60 PO; +DILT180C87 MT; +FURO40TA5 PO; +GUAI-453 MT; +IPRA3AMP9 HHN; -MED4 MT; +SUCR500T PO
[2024-07-24 09:58] VITALS: O2SAT 98
[2024-07-24 11:34] LABS: BASOPHILS % 0.8 % (0.0-2.0); DIFFERENTIAL COMMENT 0; EOSINOPHILS % 3.3 % (0.0-5.0); HEMATOCRIT. 29.9 % (36.0-48.0); HEMOGLOBIN. 10.1 g/dL (12.0-16.0); LYMPHOCYTES % 16.4 % (20.0-50.0); MEAN CORPUSCULAR HEMOGLOBIN 34.6 pg (28.0-32.0); MEAN CORPUSCULAR HGB CONC 33.7 g/dL (31.0-37.0); MEAN CORPUSCULAR VOLUME 102.7 fL (81.0-99.0); MEAN PLATELET VOLUME 10.1 fl (7.4-10.4); MONOCYTES % 8.8 % (2.0-8.0); NEUTROPHILS % 70.7 % (40.0-76.0); PLATELET 124 x1000/uL (130-400); RED BLOOD CELL COUNT 2.91 mill/uL (4.2-5.4); RED CELL DISTRIBUTION WIDTH 15.8 % (11.6-14.6); WHITE BLOOD COUNT 5.6 x1000/uL (4.5-11.0)
[2024-07-24 13:46] LABS: POTASSIUM 4.7 mEq/L (3.5-5.1)
[2024-07-24 15:23] VITALS: BP 110/53; PULSE 79; RESP 19; TEMP 36.9; O2SAT 99
== END 2024-07-24 15:26 | disposition home or self-care (01) ==
LOC: ER 09:57
DX: T82.838A Hemorrhage due to vascular prosthetic devices, implants and grafts, initial encounter (principal); I77.0 Arteriovenous fistula, acquired; I13.2 Hypertensive heart and chronic kidney disease with heart failure and with stage 5 chronic kidney disease, or end stage renal disease; I50.9 Heart failure, unspecified; N18.6 End stage renal disease; Y84.1 Kidney dialysis as the cause of abnormal reaction of the patient, or of later complication, without mention of misadventure at the time of the procedure; I48.91 Unspecified atrial fibrillation; Z79.899 Other long term (current) drug therapy; Z79.01 Long term (current) use of anticoagulants; Z95.810 Presence of automatic (implantable) cardiac defibrillator; Z99.81 Dependence on supplemental oxygen; Z98.890 Other specified postprocedural states; Z88.0 Allergy status to penicillin; Y92.89 Other specified places as the place of occurrence of the external cause
CPT/HCPCS: 36415; 84132; 85025; 86850; 86900; 93922; 99284; A4606

== ENCOUNTER → 2024-09-04 | Outpatient (CLI) | payer MEDICARE, MEDICAID | END | disposition home or self-care (01) | LOC: CT 09:18 | PROVIDERS: ATTEND Internal Medicine Critical Care Medicine | DX: J98.11 Atelectasis (principal); J90 Pleural effusion, not elsewhere classified; I25.10 Atherosclerotic heart disease of native coronary artery without angina pectoris; I51.7 Cardiomegaly; I27.21 Secondary pulmonary arterial hypertension; I31.39 Other pericardial effusion (noninflammatory); I28.1 Aneurysm of pulmonary artery; N26.1 Atrophy of kidney (terminal); R16.0 Hepatomegaly, not elsewhere classified; J84.9 Interstitial pulmonary disease, unspecified; Z95.810 Presence of automatic (implantable) cardiac defibrillator | CPT/HCPCS: 71250 ==